=== PATIENT | female | born 1950 | race African-American/Black ===

== ENCOUNTER 2016-06-03 07:16 | Emergency (ER) | payer MEDICARE, OTHER ==
[~2016-06-03] VITALS: Ht 172.7 cm; Wt 100.0 kg
[~2016-06-03 07:16] MED LIST: ASPI81TA2 PO; CLOP75 PO; OLAN5TAB2 PO; TRAM50TA4 PO; TRAZ-147 PO; VERA240T PO
[2016-06-03] MEDS ORDERED: NAPR-58 PO (07:24)
[2016-06-03] MEDS ORDERED: HYDR-309 PO (07:24)
[2016-06-03] MEDS ORDERED: KETOROLAC TROMETHAMINE 30 MG/ML VIAL IM ONE (08:15)
[2016-06-03 09:45] VITALS: BP 165/86
== END 2016-06-03 09:47 | disposition home or self-care (01) ==
LOC: EMS 07:17
DX: S39.012A Strain of muscle, fascia and tendon of lower back, initial encounter (principal); M54.5 Low back pain; M19.90 Unspecified osteoarthritis, unspecified site; F32.9 Major depressive disorder, single episode, unspecified; I10 Essential (primary) hypertension; Z79.01 Long term (current) use of anticoagulants; Z79.82 Long term (current) use of aspirin; Z88.0 Allergy status to penicillin; X58.XXXA Exposure to other specified factors, initial encounter; Y93.89 Activity, other specified; Y92.9 Unspecified place or not applicable; Y99.9 Unspecified external cause status
CPT/HCPCS: 72100; 96372; 99284; J1885

== ENCOUNTER → 2018-05-10 | Emergency (ER) | payer MEDICARE, OTHER ==
[~2018-05-10] VITALS: Ht 167.6 cm; Wt 100.0 kg
[~2018-05-10] MED LIST changes: +ASPI-1182 PO; -ASPI81TA2 PO; +ASPI81TA39 PO; +CARV6.2534 PO; +DULO20CA17 PO; +FERR325T22 PO; +HYD25 PO; +HYDR-309 PO; +HYDR-4065 PO; +HydrOXYzine PAMOATE 25 MG CAPSULE PO ONE; +LEVO25TA9 PO; +NAPR-58 PO; +SIMV20TA6 PO; -TRAZ-147 PO; +TRAZ-186 PO; +VERA180SR PO
[2018-05-10 14:10] VITALS: BP 158/70
== END | disposition home or self-care (01) ==
LOC: EMS 10:41
DX: F41.9 Anxiety disorder, unspecified (principal); G47.00 Insomnia, unspecified; I10 Essential (primary) hypertension; F32.9 Major depressive disorder, single episode, unspecified; M19.90 Unspecified osteoarthritis, unspecified site; Z86.73 Personal history of transient ischemic attack (TIA), and cerebral infarction without residual deficits; Z88.0 Allergy status to penicillin; Z79.82 Long term (current) use of aspirin

== ENCOUNTER 2020-09-02 20:08 | Inpatient (IN) | payer MEDICARE, OTHER ==
[~2020-09-02] VITALS: Ht 167.6 cm; Wt 92.1 kg
[~2020-09-02 20:08] MED LIST changes: -ASPI-1182 PO; +ASPI-1444 PO; -ASPI81TA39 PO; -CLOP75 PO; +CLOP75TA60 PO; -DULO20CA17 PO; +DULO20CA18 PO; +GABA-1181 PO; -HYDR-309 PO; -HydrOXYzine PAMOATE 25 MG CAPSULE PO ONE; +LURA40TA2 PO; +NAPR-1025 PO; -NAPR-58 PO; +SIMV-43 PO; -SIMV20TA6 PO; -TRAZ-186 PO; -VERA240T PO
[2020-09-02 21:17] LABS: COVID AG,FIA SOURCE NASOPHARYNGEAL
[2020-09-02 21:18] LABS: BASOPHILS % (AUTO) 0.1 % (0.0-2.0); EOSINOPHILS % (AUTO) 0 % (1.0-6.0); HEMATOCRIT 34.3 % (36-46); HEMOGLOBIN 11.8 g/dL (12.0-16.0); LYMPHOCYTES # (AUTO) 0.6 K/uL (1.0-4.8); LYMPHOCYTES % (AUTO) 7.7 % (22.0-44.0); MEAN CORPUSCULAR HEMOGLOBIN 30.9 pg (26.0-34.0); MEAN CORPUSCULAR HGB CONC 34.3 G/dL (31.0-37.0); MEAN CORPUSCULAR VOLUME 90 fL (80-100); MONOCYTES # (AUTO) 0.8 K/uL (0.1-1.0); MONOCYTES % (AUTO) 10.8 % (2.0-9.0); NEUTROPHILS # (AUTO) 5.9 K/uL (1.8-7.7); NEUTROPHILS % (AUTO) 81.4 % (40.0-70.0); PLATELET COUNT (AUTO) 280 K/uL (150-450); RED BLOOD CELL COUNT(AUTO) 3.82 MIL/uL (4.00-5.20); RED CELL DISTRIBUTION WIDTH 15.2 % (11.5-14.5)
[2020-09-02 21:44] LABS: ALANINE AMINOTRANSFERASE 32 U/L (12-78); ALBUMIN 3.4 g/dL (3.4-5.0); ALKALINE PHOSPHATASE 127 U/L (46-116); ANION GAP 8 mmol/L (8-16); ASPARTATE AMINOTRANSFERASE 37 U/L (15-37); CALCIUM, TOTAL 8.9 mg/dL (8.8-10.5); CARBON DIOXIDE 26 mmol/L (22-29); CHLORIDE 82 mmol/L (98-107); CREATININE 1.33 mg/dL (0.60-1.30); FREE T4 (FREE THYROXINE) 1.54 ng/dL (0.76-1.46); GLOMERULAR FILTR. RATE CALC 48 mL/min (>60); GLUCOSE,RANDOM 121 mg/dL (70-110); THYROID STIMULATING HORMONE 2.94 uIU/mL (0.36-3.74); TOTAL PROTEIN, SERUM 7.5 g/dL (6.4-8.2); UREA NITROGEN, BLOOD 15 mg/dL (7-18)
[2020-09-02 21:52] LABS: POTASSIUM 2.3 mmol/L (3.5-5.1); SODIUM SERUM 116 mmol/L (136-145)
[2020-09-02] MEDS ORDERED: RINGERS SOLUTION,LACTATED 1,000 ML IV ONE (22:15)
[2020-09-02] MEDS: POTASSIUM CHL 10 MEQ/WATER 50 ML IV SCH ×2 (22:46→23:54)
[2020-09-03] MEDS ORDERED: RINGERS LACTATED IV ONE
[2020-09-03] MEDS ORDERED: ZOLPIDEM TARTRATE 5 MG TABLET PO PRN (00:15)
[2020-09-03] MEDS ORDERED: MORPHINE SULFATE 2 MG/ML SYRINGE IVP PRN (00:15)
[2020-09-03] MEDS ORDERED: BISACODYL 10 MG RECTAL RECTAL SUPPOSITORY PR PRN (00:15)
[2020-09-03] MEDS ORDERED: HYDROCODONE/ACETAMINOPHEN 5-325 MG TABLET PO PRN (00:15)
[2020-09-03] MEDS ORDERED: MAGNESIUM HYDROXIDE SUSPENSION 30 ML UDCUP PO PRN (00:15)
[2020-09-03] MEDS ORDERED: ONDANSETRON HCL 4 MG/2 ML VIAL IVP PRN (00:15)
[2020-09-03] MEDS ORDERED: 0.9% SODIUM CHLORIDE 10 ML SYRINGE IVP PRN (01:00)
[2020-09-03] MEDS: POTASSIUM CHL 10 MEQ/WATER 50 ML IV SCH ×4 (01:18→21:15)
[2020-09-03 02:30] VITALS: BP 151/59
[2020-09-03 04:00] VITALS: BP 146/58
[2020-09-03 04:17] LABS: APPEARANCE,URINE CLEAR (CLEAR); BILIRUBIN,URINE NEGATIVE (NEGATIVE); GLUCOSE, URINE (UA) NEGATIVE (NEGATIVE); KETONES,URINE NEGATIVE (NEGATIVE); LEUKOCYTE ESTERASE ,URINE MODERATE (NEGATIVE); NITRATE,URINE NEGATIVE (NEGATIVE); OCCULT BLOOD,URINE NEGATIVE (NEGATIVE); PROTEIN,URINE NEGATIVE (NEGATIVE)
[2020-09-03 04:29] LABS: BACTERIA,URINE Few /HPF (None Seen); RBC,URINE 0-2 /HPF (0-2); SQUAMOUS EPITHELIAL CELL,UR Few /LPF (None Seen)
[2020-09-03 08:00] VITALS: BP 110/50
[2020-09-03] MEDS: DOCUSATE SODIUM 100 MG CAPSULE PO SCH ×2 (09:00→20:06)
[2020-09-03] MEDS: PANTOPRAZOLE SODIUM 40 MG DR TABLET PO SCH (09:51)
[2020-09-03] MEDS: HEPARIN SODIUM,PORCINE 5,000 UNITS/ML VIAL SQ SCH ×3 (09:51→23:33)
[2020-09-03 12:00] VITALS: BP 111/52
[2020-09-03 12:12] LABS: CALCIUM, TOTAL 8.8 mg/dL (8.8-10.5); CREATININE 1.15 mg/dL (0.60-1.30); PHOSPHORUS 2.1 mg/dL (2.5-4.9)
[2020-09-03 12:18] LABS: POTASSIUM 2.5 mmol/L (3.5-5.1)
[2020-09-03] MEDS ORDERED: SODIUM PHOS,M-BASIC-D-BASIC 30 MMOL in DEXTROSE 5%-WATER 250 ML IV ONE (13:00)
[2020-09-03] MEDS ORDERED: POTASSIUM CHLORIDE 20 MEQ ER TABLET PO ONE ×2 (13:00→19:45)
[2020-09-03] MEDS: SODIUM CHLORIDE 0.9% 1,000 ML IV SCH (13:23)
[2020-09-03 13:55] VITALS: BP 124/52
[2020-09-03] MEDS: ACETAMINOPHEN 325 MG TABLET PO PRN (13:55)
[2020-09-03 14:28] LABS: CREATININE,URINE RANDOM 31.7 mg/dL (30.0-125.0)
[2020-09-03 16:00] VITALS: BP 136/90
[2020-09-03 19:11] LABS: CALCIUM, TOTAL 8.4 mg/dL (8.8-10.5); CREATININE 1.22 mg/dL (0.60-1.30)
[2020-09-03 19:20] LABS: POTASSIUM 2.4 mmol/L (3.5-5.1)
[2020-09-03] MEDS: CARVEDILOL 6.25 MG TABLET PO SCH (20:06)
[2020-09-04] VITALS: BP 118/55
[2020-09-04 04:00] VITALS: BP 132/50
[2020-09-04] MEDS: LEVOTHYROXINE SODIUM 75 MCG TABLET PO SCH (05:48)
[2020-09-04 05:58] LABS: BASOPHILS % (AUTO) 0.3 % (0.0-2.0); EOSINOPHILS % (AUTO) 0.6 % (1.0-6.0); HEMOGLOBIN 10.5 g/dL (12.0-16.0); LYMPHOCYTES # (AUTO) 1.2 K/uL (1.0-4.8); MEAN CORPUSCULAR HGB CONC 34.1 G/dL (31.0-37.0); MEAN CORPUSCULAR VOLUME 91 fL (80-100); MONOCYTES # (AUTO) 0.8 K/uL (0.1-1.0); MONOCYTES % (AUTO) 13.1 % (2.0-9.0); NEUTROPHILS # (AUTO) 3.9 K/uL (1.8-7.7); PLATELET COUNT (AUTO) 237 K/uL (150-450); RED CELL DISTRIBUTION WIDTH 15.3 % (11.5-14.5)
[2020-09-04 06:15] LABS: CREATININE 1.15 mg/dL (0.60-1.30)
[2020-09-04 06:46] LABS: POTASSIUM 2.9 mmol/L (3.5-5.1)
[2020-09-04 07:00] LABS: CALCIUM, TOTAL 8.4 mg/dL (8.8-10.5)
[2020-09-04] MEDS ORDERED: POTASSIUM CHLORIDE 20 MEQ ER TABLET PO ONE (07:00)
[2020-09-04 08:00] VITALS: BP 132/39
[2020-09-04] MEDS: DOCUSATE SODIUM 100 MG CAPSULE PO SCH ×2 (08:36→20:55)
[2020-09-04] MEDS: SODIUM CHLORIDE 0.9% 1,000 ML IV SCH (08:36)
[2020-09-04] MEDS: FERROUS SULFATE 325 MG EC TABLET PO SCH (08:36)
[2020-09-04] MEDS: HEPARIN SODIUM,PORCINE 5,000 UNITS/ML VIAL SQ SCH ×3 (08:36→23:51)
[2020-09-04] MEDS: CARVEDILOL 6.25 MG TABLET PO SCH ×2 (08:37→20:55)
[2020-09-04] MEDS: ASPIRIN 81 MG DR TABLET PO SCH (08:37)
[2020-09-04] MEDS: PANTOPRAZOLE SODIUM 40 MG DR TABLET PO SCH (08:37)
[2020-09-04] MEDS: CLOPIDOGREL BISULFATE 75 MG TABLET PO SCH (08:38)
[2020-09-04 12:00] VITALS: BP 117/49
[2020-09-04 16:00] VITALS: BP 115/55
[2020-09-05] VITALS (8 sets, daily range): BP systolic 102–124; BP diastolic 41–65
[2020-09-05 05:13] LABS: BASOPHILS % (AUTO) 0.3 % (0.0-2.0); EOSINOPHILS % (AUTO) 1.2 % (1.0-6.0); HEMATOCRIT 28.7 % (36-46); HEMOGLOBIN 9.8 g/dL (12.0-16.0); LYMPHOCYTES # (AUTO) 1.3 K/uL (1.0-4.8); LYMPHOCYTES % (AUTO) 20.8 % (22.0-44.0); MEAN CORPUSCULAR HEMOGLOBIN 31.4 pg (26.0-34.0); MEAN CORPUSCULAR HGB CONC 34.1 G/dL (31.0-37.0); MEAN CORPUSCULAR VOLUME 92 fL (80-100); MONOCYTES # (AUTO) 0.7 K/uL (0.1-1.0); MONOCYTES % (AUTO) 10.4 % (2.0-9.0); NEUTROPHILS # (AUTO) 4.4 K/uL (1.8-7.7); NEUTROPHILS % (AUTO) 67.3 % (40.0-70.0); PLATELET COUNT (AUTO) 206 K/uL (150-450); RED BLOOD CELL COUNT(AUTO) 3.12 MIL/uL (4.00-5.20); RED CELL DISTRIBUTION WIDTH 15.6 % (11.5-14.5)
[2020-09-05 05:21] LABS: ANION GAP 8 mmol/L (8-16); CALCIUM, TOTAL 7.8 mg/dL (8.8-10.5); CARBON DIOXIDE 20 mmol/L (22-29); CHLORIDE 101 mmol/L (98-107); CREATININE 1.05 mg/dL (0.60-1.30); GLOMERULAR FILTR. RATE CALC > 60 mL/min (>60); GLUCOSE,RANDOM 116 mg/dL (70-110); POTASSIUM 3.3 mmol/L (3.5-5.1); SODIUM SERUM 129 mmol/L (136-145); UREA NITROGEN, BLOOD 8 mg/dL (7-18)
[2020-09-05] MEDS: SODIUM CHLORIDE 0.9% 1,000 ML IV SCH ×2 (05:39→23:48)
[2020-09-05] MEDS: LEVOTHYROXINE SODIUM 75 MCG TABLET PO SCH (05:39)
[2020-09-05] MEDS ORDERED: POTASSIUM CHLORIDE 20 MEQ ER TABLET PO ONE (06:30)
[2020-09-05] MEDS: FERROUS SULFATE 325 MG EC TABLET PO SCH (08:15)
[2020-09-05] MEDS: CLOPIDOGREL BISULFATE 75 MG TABLET PO SCH (08:15)
[2020-09-05] MEDS: PANTOPRAZOLE SODIUM 40 MG DR TABLET PO SCH (08:15)
[2020-09-05] MEDS: CARVEDILOL 6.25 MG TABLET PO SCH ×2 (08:15→19:56)
[2020-09-05] MEDS: ASPIRIN 81 MG DR TABLET PO SCH (08:16)
[2020-09-05] MEDS: DOCUSATE SODIUM 100 MG CAPSULE PO SCH ×2 (08:16→19:56)
[2020-09-05] MEDS: HEPARIN SODIUM,PORCINE 5,000 UNITS/ML VIAL SQ SCH ×3 (08:16→23:48)
[2020-09-05] MEDS: ACETAMINOPHEN 325 MG TABLET PO PRN (11:09)
[2020-09-05] MEDS ORDERED: HydrOXYzine HCL 25 MG TABLET PO PRN (15:00)
[2020-09-05] MEDS ORDERED: LURASIDONE HCL 40 MG TABLET PO SCH (17:30)
[2020-09-06 04:27] VITALS: BP 119/59
[2020-09-06] MEDS: LEVOTHYROXINE SODIUM 75 MCG TABLET PO SCH (05:18)
[2020-09-06 06:27] LABS: BASOPHILS % (AUTO) 0.4 % (0.0-2.0); EOSINOPHILS % (AUTO) 1.2 % (1.0-6.0); HEMATOCRIT 31.2 % (36-46); HEMOGLOBIN 10.5 g/dL (12.0-16.0); LYMPHOCYTES # (AUTO) 1.4 K/uL (1.0-4.8); LYMPHOCYTES % (AUTO) 21.7 % (22.0-44.0); MEAN CORPUSCULAR HEMOGLOBIN 30.9 pg (26.0-34.0); MEAN CORPUSCULAR HGB CONC 33.8 G/dL (31.0-37.0); MEAN CORPUSCULAR VOLUME 92 fL (80-100); MONOCYTES # (AUTO) 0.7 K/uL (0.1-1.0); NEUTROPHILS # (AUTO) 4.2 K/uL (1.8-7.7); NEUTROPHILS % (AUTO) 65.7 % (40.0-70.0); PLATELET COUNT (AUTO) 224 K/uL (150-450); RED CELL DISTRIBUTION WIDTH 15.7 % (11.5-14.5)
[2020-09-06 06:33] LABS: ANION GAP 12 mmol/L (8-16); CALCIUM, TOTAL 8.3 mg/dL (8.8-10.5); CARBON DIOXIDE 19 mmol/L (22-29); CHLORIDE 104 mmol/L (98-107); CREATININE 0.96 mg/dL (0.60-1.30); GLOMERULAR FILTR. RATE CALC > 60 mL/min (>60); GLUCOSE,RANDOM 98 mg/dL (70-110); POTASSIUM 4.1 mmol/L (3.5-5.1); SODIUM SERUM 135 mmol/L (136-145); UREA NITROGEN, BLOOD 7 mg/dL (7-18)
[2020-09-06 07:21] VITALS: BP 145/55
[2020-09-06] MEDS: FERROUS SULFATE 325 MG EC TABLET PO SCH (08:32)
[2020-09-06] MEDS: MULTIVITAMINS WITH MINERALS, THERAPEUTIC TABLET PO SCH (08:32)
[2020-09-06] MEDS: DOCUSATE SODIUM 100 MG CAPSULE PO SCH ×2 (08:32→19:59)
[2020-09-06] MEDS: ASPIRIN 81 MG DR TABLET PO SCH (08:32)
[2020-09-06] MEDS: CLOPIDOGREL BISULFATE 75 MG TABLET PO SCH (08:32)
[2020-09-06] MEDS: PANTOPRAZOLE SODIUM 40 MG DR TABLET PO SCH (08:32)
[2020-09-06] MEDS: CARVEDILOL 6.25 MG TABLET PO SCH ×2 (08:33→19:59)
[2020-09-06] MEDS: HEPARIN SODIUM,PORCINE 5,000 UNITS/ML VIAL SQ SCH ×3 (08:33→23:18)
[2020-09-06 11:19] VITALS: BP 123/61
[2020-09-06 15:42] VITALS: BP 140/76
[2020-09-06] MEDS ORDERED: LURASIDONE HCL 80 MG TABLET PO SCH (18:00)
[2020-09-06 19:45] VITALS: BP 162/70
[2020-09-06 23:22] VITALS: BP 148/58
[2020-09-07 04:31] VITALS: BP 153/68
[2020-09-07] MEDS: LEVOTHYROXINE SODIUM 75 MCG TABLET PO SCH (05:06)
[2020-09-07 07:33] VITALS: BP 123/52
[2020-09-07] MEDS: ASPIRIN 81 MG DR TABLET PO SCH (08:07)
[2020-09-07] MEDS: FERROUS SULFATE 325 MG EC TABLET PO SCH (08:08)
[2020-09-07] MEDS: CARVEDILOL 6.25 MG TABLET PO SCH (08:08)
[2020-09-07] MEDS: PANTOPRAZOLE SODIUM 40 MG DR TABLET PO SCH (08:08)
[2020-09-07] MEDS: MULTIVITAMINS WITH MINERALS, THERAPEUTIC TABLET PO SCH (08:08)
[2020-09-07] MEDS: CLOPIDOGREL BISULFATE 75 MG TABLET PO SCH (08:08)
[2020-09-07] MEDS: DOCUSATE SODIUM 100 MG CAPSULE PO SCH (08:09)
[2020-09-07] MEDS: HEPARIN SODIUM,PORCINE 5,000 UNITS/ML VIAL SQ SCH ×2 (08:12→16:00)
[2020-09-07 11:40] VITALS: BP 164/67
[2020-09-07] MEDS ORDERED: MULT-1133 PO (12:49)
[2020-09-07] MEDS ORDERED: ACET-2247 PO (12:49)
[2020-09-07] MEDS ORDERED: HYDR-4723 PO (12:50)
[2020-09-07] MEDS ORDERED: BISA10SU11 PR (12:50)
[2020-09-07 12:51] VITALS: BP 151/73
[2020-09-07] MEDS ORDERED: MOM30 PO (12:51)
[2020-09-07 15:37] VITALS: BP 109/58
== END 2020-09-07 17:15 | DRG 682 ==
LOC: EMS 20:10 → ICU 09-03 02:16 → 5S 09-05 16:00
PROVIDERS: ADMIT Internal Medicine; ATTEND Internal Medicine
DX: N17.9 Acute kidney failure, unspecified (principal); G93.41 Metabolic encephalopathy; E87.1 Hypo-osmolality and hyponatremia; E87.6 Hypokalemia; E86.1 Hypovolemia; E78.5 Hyperlipidemia, unspecified; I10 Essential (primary) hypertension; E03.9 Hypothyroidism, unspecified; D64.9 Anemia, unspecified; M19.90 Unspecified osteoarthritis, unspecified site; F20.9 Schizophrenia, unspecified; Z20.822 Contact with and (suspected) exposure to COVID-19; Z86.73 Personal history of transient ischemic attack (TIA), and cerebral infarction without residual deficits; Z79.899 Other long term (current) drug therapy; F32.9 Major depressive disorder, single episode, unspecified; Z88.0 Allergy status to penicillin; Z79.82 Long term (current) use of aspirin
CPT/HCPCS: 70450; 71045; 76770; 80048; 80053; 81001; 82533; 82570; 83036; 83735; 83930; 83935; 84100; 84132; 84133; 84156; 84300; 84439; 84443; 84484; 84540; 85025; 87081; 87086; 87426; 92610; 93005; 97112; 97162; 97167; 97530; 97535; 99291; G0378; G0480; J1644; J3480; J3490; J7030; J7060; J7120; 36415-L1; 36415-TC; X7700

== ENCOUNTER 2022-09-23 19:39 | Emergency (ER) | payer MEDICARE, OTHER ==
[~2022-09-23] VITALS: Ht 167.6 cm; Wt 87.9 kg
[~2022-09-23 19:39] MED LIST changes: +ACET-2247 PO; +AMLO-258 PO; -ASPI-1444 PO; +ASPI-1450 PO; +ATOR40TA28 PO; +AUD NEB; +BENZ-227 PO; +BISA-151 PO; +BUSP5TAB20 PO; +CALC500T37 PO; +CARV3 PO; -CARV6.2534 PO; +CHOL25TA4 PO; +CLON0.1T2 PO; +DICL100G51 TP; +DOCU-385 PO; -DULO20CA18 PO; +ESCI-8 PO; +ESOM20SU2 PO; -FERR325T22 PO; -GABA-1181 PO; -HYD25 PO; -HYDR-4065 PO; +HYDR-4723 PO; +HYDR25TA PO; +HYPR15DR23 OS; +IPRA3S NEB; +LACT1CAP70 PO; +LIDO1ADH83 TP; -LURA40TA2 PO; +MAGN-169 PO; +MULT-664 PO; +NACL1 PO; -NAPR-1025 PO; +NITR0.4T52 SL; -OLAN5TAB2 PO; +ONDA-104 PO; +ROSU20TA73 PO; -SIMV-43 PO; +THYR15TA PO; -TRAM50TA4 PO; +TRAZ-252 PO; +TRAZ150T80 PO; -VERA180SR PO
[2022-09-23] MEDS ORDERED: HYDR25TA PO (20:27)
[2022-09-23] MEDS ORDERED: CARV3 PO (20:27)
[2022-09-23] MEDS ORDERED: ESOM20SU2 PO (20:27)
[2022-09-23] MEDS ORDERED: CALC500T37 PO (20:27)
[2022-09-23] MEDS ORDERED: PB/HYOSCY/ATR/SCOP/LIDO/MAALOX 55 ML BOTTLE PO ONE (20:30)
[2022-09-23] MEDS ORDERED: IPRNEB IH (20:33)
[2022-09-23 20:37] LABS: BASOPHILS % (AUTO) 0.8 % (0.0-2.0); EOSINOPHILS % (AUTO) 5.8 % (1.0-6.0); HEMATOCRIT 27.3 % (36-46); HEMOGLOBIN 8.7 g/dL (12.0-16.0); LYMPHOCYTES # (AUTO) 1.2 K/uL (1.0-4.8); LYMPHOCYTES % (AUTO) 40.9 % (22.0-44.0); MEAN CORPUSCULAR HEMOGLOBIN 28.8 pg (26.0-34.0); MEAN CORPUSCULAR VOLUME 90 fL (80-100); MONOCYTES # (AUTO) 0.3 K/uL (0.1-1.0); NEUTROPHILS # (AUTO) 1.3 K/uL (1.8-7.7); NEUTROPHILS % (AUTO) 43.5 % (40.0-70.0); PLATELET COUNT (AUTO) 200 K/uL (150-450); RED BLOOD CELL COUNT(AUTO) 3.03 MIL/uL (4.00-5.20); RED CELL DISTRIBUTION WIDTH 16.2 % (11.5-14.5)
[2022-09-23 20:44] LABS: ANION GAP 4 mmol/L (8-16); CALCIUM, TOTAL 8.3 mg/dL (8.8-10.5); CARBON DIOXIDE 32 mmol/L (22-29); CHLORIDE 105 mmol/L (98-107); CREATININE 0.86 mg/dL (0.60-1.30); GLOMERULAR FILTR. RATE CALC > 60 mL/min (>60); GLUCOSE,RANDOM 102 mg/dL (70-110); POTASSIUM 4.2 mmol/L (3.5-5.1); SODIUM SERUM 141 mmol/L (136-145)
[2022-09-23 20:51] LABS: ALANINE AMINOTRANSFERASE 39 U/L (12-78); ALBUMIN 2.7 g/dL (3.4-5.0); ALKALINE PHOSPHATASE 85 U/L (46-116); ASPARTATE AMINOTRANSFERASE 44 U/L (15-37); BILIRUBIN,TOTAL 0.1 mg/dL (0.1-1.0); LIPASE 80 U/L (73-393); TOTAL PROTEIN, SERUM 5.9 g/dL (6.4-8.2)
[2022-09-23 21:08] VITALS: BP 155/53
== END 2022-09-23 22:33 | disposition home or self-care (01) ==
LOC: EMS 19:40
DX: R10.13 Epigastric pain (principal); K29.70 Gastritis, unspecified, without bleeding; D64.9 Anemia, unspecified; R77.8 Other specified abnormalities of plasma proteins; F41.9 Anxiety disorder, unspecified; M19.90 Unspecified osteoarthritis, unspecified site; F32.A Depression, unspecified; I10 Essential (primary) hypertension; Z98.51 Tubal ligation status; Z98.890 Other specified postprocedural states; Z88.0 Allergy status to penicillin
CPT/HCPCS: 80053; 83690; 84484; 85025; 93005; 99284

== ENCOUNTER 2022-09-25 02:52 | Emergency (ER) | payer MEDICARE, OTHER ==
[~2022-09-25] VITALS: Ht 167.6 cm; Wt 85.0 kg
[~2022-09-25 02:52] MED LIST changes: -AMLO-258 PO; -CLON0.1T2 PO; -DICL100G51 TP; -ESCI-8 PO; -IPRA3S NEB; +IPRNEB IH; -NACL1 PO; -ROSU20TA73 PO; -THYR15TA PO; -TRAZ150T80 PO
[2022-09-25 03:27] LABS: BASOPHILS % (AUTO) 0.9 % (0.0-2.0); EOSINOPHILS % (AUTO) 5.2 % (1.0-6.0); HEMATOCRIT 29.4 % (36-46); HEMOGLOBIN 9.6 g/dL (12.0-16.0); LYMPHOCYTES # (AUTO) 1.3 K/uL (1.0-4.8); LYMPHOCYTES % (AUTO) 35.2 % (22.0-44.0); MEAN CORPUSCULAR HEMOGLOBIN 29.2 pg (26.0-34.0); MEAN CORPUSCULAR HGB CONC 32.6 G/dL (31.0-37.0); MEAN CORPUSCULAR VOLUME 90 fL (80-100); MONOCYTES # (AUTO) 0.3 K/uL (0.1-1.0); MONOCYTES % (AUTO) 8.6 % (2.0-9.0); NEUTROPHILS # (AUTO) 1.9 K/uL (1.8-7.7); NEUTROPHILS % (AUTO) 50.1 % (40.0-70.0); PLATELET COUNT (AUTO) 207 K/uL (150-450); RED BLOOD CELL COUNT(AUTO) 3.28 MIL/uL (4.00-5.20); RED CELL DISTRIBUTION WIDTH 16.3 % (11.5-14.5)
[2022-09-25 03:36] LABS: ANION GAP 6 mmol/L (8-16); CALCIUM, TOTAL 8.7 mg/dL (8.8-10.5); CARBON DIOXIDE 31 mmol/L (22-29); CHLORIDE 103 mmol/L (98-107); CREATININE 0.84 mg/dL (0.60-1.30); GLOMERULAR FILTR. RATE CALC > 60 mL/min (>60); GLUCOSE,RANDOM 96 mg/dL (70-110); POTASSIUM 4.2 mmol/L (3.5-5.1); SODIUM SERUM 140 mmol/L (136-145)
[2022-09-25 03:40] LABS: PROTHROMBIN TIME 10.6 SEC (9.4-11.6)
[2022-09-25 03:43] LABS: ALANINE AMINOTRANSFERASE 36 U/L (12-78); ALKALINE PHOSPHATASE 84 U/L (46-116); ASPARTATE AMINOTRANSFERASE 29 U/L (15-37); BILIRUBIN,TOTAL 0.2 mg/dL (0.1-1.0); CREATINE KINASE, TOTAL ONLY 43 U/L (26-192); LIPASE 68 U/L (73-393); TOTAL PROTEIN, SERUM 6.4 g/dL (6.4-8.2)
[2022-09-25 03:53] LABS: B-TYPE NATRIURETIC PEPTIDE 336 pg/mL (0-100)
[2022-09-25 04:38] LABS: APPEARANCE,URINE CLEAR (CLEAR); BILIRUBIN,URINE NEGATIVE (NEGATIVE); GLUCOSE, URINE (UA) NEGATIVE (NEGATIVE); KETONES,URINE NEGATIVE (NEGATIVE); LEUKOCYTE ESTERASE ,URINE NEGATIVE (NEGATIVE); NITRATE,URINE NEGATIVE (NEGATIVE); OCCULT BLOOD,URINE NEGATIVE (NEGATIVE); PROTEIN,URINE NEGATIVE (NEGATIVE); SPECIFIC GRAVITIY, URINE 1.005 (1.003-1.030); UROBILINOGEN,URINE <=1.0 mg/dL (<=1.0)
[2022-09-25] MEDS ORDERED: FAMOTIDINE 20 MG TABLET PO ONE (04:45)
[2022-09-25 06:41] VITALS: BP 163/58
== END 2022-09-25 10:18 | disposition home or self-care (01) ==
LOC: EMS 02:52
DX: R10.10 Upper abdominal pain, unspecified (principal); K21.9 Gastro-esophageal reflux disease without esophagitis; F41.9 Anxiety disorder, unspecified; M19.90 Unspecified osteoarthritis, unspecified site; F32.A Depression, unspecified; I10 Essential (primary) hypertension; Z98.51 Tubal ligation status; Z98.890 Other specified postprocedural states; Z88.0 Allergy status to penicillin
CPT/HCPCS: 71045; 74176; 80053; 81003; 82550; 83690; 83880; 84484; 85025; 85610; 85730; 93005; 99285; 36415-L1; 36415-TC

== ENCOUNTER 2022-10-06 20:21 | Inpatient (IN) | payer MEDICARE, OTHER ==
[~2022-10-06] VITALS: Ht 167.6 cm; Wt 86.0 kg
[~2022-10-06 20:21] MED LIST changes: +IPRA0.2S49 IH; -IPRNEB IH
[2022-10-06 21:05] LABS: BASOPHILS % (AUTO) 0.9 % (0.0-2.0); EOSINOPHILS % (AUTO) 4.6 % (1.0-6.0); HEMATOCRIT 27.7 % (36-46); HEMOGLOBIN 8.9 g/dL (12.0-16.0); LYMPHOCYTES # (AUTO) 1.2 K/uL (1.0-4.8); MEAN CORPUSCULAR HEMOGLOBIN 28.6 pg (26.0-34.0); MEAN CORPUSCULAR VOLUME 89 fL (80-100); MONOCYTES # (AUTO) 0.3 K/uL (0.1-1.0); MONOCYTES % (AUTO) 12.2 % (2.0-9.0); NEUTROPHILS % (AUTO) 37.3 % (40.0-70.0); PLATELET COUNT (AUTO) 200 K/uL (150-450); RED CELL DISTRIBUTION WIDTH 15.7 % (11.5-14.5)
[2022-10-06 21:15] LABS: ANION GAP 8 mmol/L (8-16); CALCIUM, TOTAL 8.4 mg/dL (8.8-10.5); CARBON DIOXIDE 25 mmol/L (22-29); CHLORIDE 105 mmol/L (98-107); CREATININE 1.04 mg/dL (0.60-1.30); GLOMERULAR FILTR. RATE CALC > 60 mL/min (>60); GLUCOSE,RANDOM 98 mg/dL (70-110); POTASSIUM 3.7 mmol/L (3.5-5.1); SODIUM SERUM 138 mmol/L (136-145)
[2022-10-06 21:18] LABS: PROTHROMBIN TIME 10.6 SEC (9.4-11.6)
[2022-10-06 21:22] LABS: B-TYPE NATRIURETIC PEPTIDE 52 pg/mL (0-100)
[2022-10-06 21:29] LABS: ALANINE AMINOTRANSFERASE 14 U/L (12-78); ALKALINE PHOSPHATASE 77 U/L (46-116); ASPARTATE AMINOTRANSFERASE 12 U/L (15-37); BILIRUBIN,TOTAL 0.2 mg/dL (0.1-1.0); TOTAL PROTEIN, SERUM 6.3 g/dL (6.4-8.2)
[2022-10-06 21:32] LABS: THYROID STIMULATING HORMONE 5.03 uIU/mL (0.36-3.74)
[2022-10-06] MEDS ORDERED: MORPHINE SULFATE 4 MG/ML SYRINGE IVP ONE (22:00)
[2022-10-06] MEDS ORDERED: ONDANSETRON HCL 4 MG/2 ML VIAL IVP ONE (22:00)
[2022-10-06] MEDS ORDERED: PANTOPRAZOLE SODIUM 40 MG/VIAL IVP ONE (22:00)
[2022-10-06] MEDS ORDERED: ONDANSETRON HCL 4 MG/2 ML VIAL IVP PRN (22:30)
[2022-10-06] MEDS ORDERED: 0.9% SODIUM CHLORIDE 10 ML SYRINGE IVP PRN (22:30)
[2022-10-07] VITALS (10 sets, daily range): BP systolic 137–180; BP diastolic 51–80; PULSE 59–87; RESP 17–20; TEMP 97.8–98.7; O2SAT 96–98
[2022-10-07] MEDS: ACETAMINOPHEN 325 MG TABLET PO PRN ×3 (00:11→09:05)
[2022-10-07] MEDS ORDERED: CARVEDILOL 6.25 MG TABLET PO ONE (00:45)
[2022-10-07] MEDS: HydrALAZINE HCL 20 MG/ML VIAL IVP PRN ×2 (02:14→09:03)
[2022-10-07] MEDS ORDERED: MAGNESIUM HYDROXIDE SUSPENSION 30 ML UDCUP PO PRN ×2 (11:45→12:00)
[2022-10-07] MEDS ORDERED: BISACODYL 5 MG EC TABLET PO PRN (11:45)
[2022-10-07] MEDS ORDERED: IPRATROPIUM BROMIDE 0.5 MG/2.5 ML NEB SOLUTION NEB PRN (12:00)
[2022-10-07] MEDS ORDERED: MORPHINE SULFATE 2 MG/ML SYRINGE IVP PRN (12:00)
[2022-10-07] MEDS ORDERED: ONDANSETRON HCL 4 MG/2 ML VIAL IVP PRN (12:00)
[2022-10-07] MEDS: ASPIRIN 81 MG CHEWABLE TABLET PO SCH (12:11)
[2022-10-07] MEDS: NITROGLYCERIN 2% (1 GM=INCH) OINTMENT PACKET TP SCH ×3 (12:11→23:37)
[2022-10-07] MEDS: CLOPIDOGREL BISULFATE 75 MG TABLET PO SCH (12:11)
[2022-10-07] MEDS: BusPIRone HCL 5 MG TABLET PO SCH ×2 (12:11→20:17)
[2022-10-07] MEDS: ATORVASTATIN CALCIUM 40 MG TABLET PO SCH (12:11)
[2022-10-07] MEDS: CARVEDILOL 3.125 MG TABLET PO SCH ×2 (12:11→23:32)
[2022-10-07] MEDS: CALCIUM CARBONATE 500 MG CHEWABLE TABLET PO PRN ×2 (15:18→23:36)
[2022-10-07] MEDS: HYDROCODONE/ACETAMINOPHEN 5-325 MG TABLET PO PRN ×2 (15:18→20:19)
[2022-10-07] MEDS: TraZODone HCL 50 MG TABLET PO SCH (20:16)
[2022-10-07] MEDS: HYDROCHLOROTHIAZIDE 25 MG TABLET PO SCH (20:17)
[2022-10-07] MEDS: DOCUSATE SODIUM 100 MG CAPSULE PO SCH (20:25)
[2022-10-07] MEDS: ZOLPIDEM TARTRATE 10 MG TABLET PO PRN (23:52)
[2022-10-08] VITALS (10 sets, daily range): BP systolic 129–214; BP diastolic 45–93; PULSE 56–75; RESP 18–20; TEMP 98–98.5
[2022-10-08] MEDS: CALCIUM CARBONATE 500 MG CHEWABLE TABLET PO PRN ×3 (05:38→23:24)
[2022-10-08] MEDS: HYDROCODONE/ACETAMINOPHEN 5-325 MG TABLET PO PRN ×3 (05:38→20:16)
[2022-10-08] MEDS: NITROGLYCERIN 2% (1 GM=INCH) OINTMENT PACKET TP SCH ×4 (05:38→23:24)
[2022-10-08] MEDS: LEVOTHYROXINE SODIUM 25 MCG TABLET PO SCH (05:40)
[2022-10-08 07:00] LABS: CHOL/HDL RATIO 2.6 (3.9-5.7)
[2022-10-08] MEDS ORDERED: DOCUSATE SODIUM 100 MG CAPSULE PO SCH (09:00)
[2022-10-08] MEDS: CHOLECALCIFEROL (VIT D3) 1,000 UNITS [25 MCG] TABLET PO SCH (09:27)
[2022-10-08] MEDS: CLOPIDOGREL BISULFATE 75 MG TABLET PO SCH (09:28)
[2022-10-08] MEDS: ATORVASTATIN CALCIUM 40 MG TABLET PO SCH (09:28)
[2022-10-08] MEDS: HYDROCHLOROTHIAZIDE 25 MG TABLET PO SCH ×2 (09:28→20:17)
[2022-10-08] MEDS: DOCUSATE SODIUM 100 MG CAPSULE PO SCH ×2 (09:29→20:16)
[2022-10-08] MEDS: BusPIRone HCL 5 MG TABLET PO SCH ×2 (09:29→20:17)
[2022-10-08] MEDS: PANTOPRAZOLE SODIUM 40 MG/VIAL IVP SCH (09:29)
[2022-10-08] MEDS: ASPIRIN 81 MG CHEWABLE TABLET PO SCH (09:29)
[2022-10-08 12:53] LABS: BASOPHILS % (AUTO) 0.5 % (0.0-2.0); EOSINOPHILS % (AUTO) 5.7 % (1.0-6.0); HEMATOCRIT 27.2 % (36-46); HEMOGLOBIN 8.8 g/dL (12.0-16.0); LYMPHOCYTES # (AUTO) 1.2 K/uL (1.0-4.8); LYMPHOCYTES % (AUTO) 33.1 % (22.0-44.0); MEAN CORPUSCULAR HEMOGLOBIN 29.3 pg (26.0-34.0); MEAN CORPUSCULAR HGB CONC 32.5 G/dL (31.0-37.0); MEAN CORPUSCULAR VOLUME 90 fL (80-100); MONOCYTES # (AUTO) 0.4 K/uL (0.1-1.0); MONOCYTES % (AUTO) 12.4 % (2.0-9.0); NEUTROPHILS # (AUTO) 1.7 K/uL (1.8-7.7); NEUTROPHILS % (AUTO) 48.3 % (40.0-70.0); PLATELET COUNT (AUTO) 186 K/uL (150-450); RED BLOOD CELL COUNT(AUTO) 3.01 MIL/uL (4.00-5.20); RED CELL DISTRIBUTION WIDTH 15.9 % (11.5-14.5)
[2022-10-08 13:00] LABS: ANION GAP 12 mmol/L (8-16); CALCIUM, TOTAL 8.6 mg/dL (8.8-10.5); CARBON DIOXIDE 24 mmol/L (22-29); CHLORIDE 105 mmol/L (98-107); CREATININE 0.92 mg/dL (0.60-1.30); GLOMERULAR FILTR. RATE CALC > 60 mL/min (>60); GLUCOSE,RANDOM 95 mg/dL (70-110); POTASSIUM 4.1 mmol/L (3.5-5.1); SODIUM SERUM 141 mmol/L (136-145)
[2022-10-08] MEDS: CARVEDILOL 3.125 MG TABLET PO SCH ×2 (13:03→23:24)
[2022-10-08 13:06] LABS: ALANINE AMINOTRANSFERASE 12 U/L (12-78); ALKALINE PHOSPHATASE 69 U/L (46-116); ASPARTATE AMINOTRANSFERASE 14 U/L (15-37); BILIRUBIN,TOTAL 0.3 mg/dL (0.1-1.0); TOTAL PROTEIN, SERUM 6.4 g/dL (6.4-8.2)
[2022-10-08] MEDS: ACETAMINOPHEN 325 MG TABLET PO PRN ×2 (15:52→23:24)
[2022-10-08] MEDS: NITROGLYCERIN 0.4 MG SUBLINGUAL TABLET #25 SL PRN ×2 (18:25→22:19)
[2022-10-08] MEDS: TraZODone HCL 50 MG TABLET PO SCH (20:17)
[2022-10-08] MEDS: HydrALAZINE HCL 20 MG/ML VIAL IVP PRN (22:19)
[2022-10-08] MEDS: ONDANSETRON HCL 4 MG TABLET PO PRN (22:48)
[2022-10-08] MEDS: ZOLPIDEM TARTRATE 10 MG TABLET PO PRN (23:24)
[2022-10-09 01:05] VITALS: BP 141/51; PULSE 83; RESP 20; TEMP 98.5
[2022-10-09] MEDS: NITROGLYCERIN 0.4 MG SUBLINGUAL TABLET #25 SL PRN (02:45)
[2022-10-09] MEDS: LEVOTHYROXINE SODIUM 25 MCG TABLET PO SCH (05:09)
[2022-10-09] MEDS: ACETAMINOPHEN 325 MG TABLET PO PRN ×2 (05:09→09:16)
[2022-10-09] MEDS: NITROGLYCERIN 2% (1 GM=INCH) OINTMENT PACKET TP SCH ×2 (05:10→11:50)
[2022-10-09] MEDS: PANTOPRAZOLE SODIUM 40 MG/VIAL IVP SCH (09:12)
[2022-10-09] MEDS: HYDROCHLOROTHIAZIDE 25 MG TABLET PO SCH (09:12)
[2022-10-09] MEDS: ONDANSETRON HCL 4 MG TABLET PO PRN (09:13)
[2022-10-09] MEDS: BusPIRone HCL 5 MG TABLET PO SCH (09:13)
[2022-10-09] MEDS: DOCUSATE SODIUM 100 MG CAPSULE PO SCH (09:13)
[2022-10-09] MEDS: CLOPIDOGREL BISULFATE 75 MG TABLET PO SCH (09:13)
[2022-10-09] MEDS: CHOLECALCIFEROL (VIT D3) 1,000 UNITS [25 MCG] TABLET PO SCH (09:13)
[2022-10-09] MEDS: ATORVASTATIN CALCIUM 40 MG TABLET PO SCH (09:14)
[2022-10-09] MEDS: ZOLPIDEM TARTRATE 10 MG TABLET PO PRN (09:14)
[2022-10-09] MEDS: ASPIRIN 81 MG CHEWABLE TABLET PO SCH (09:17)
[2022-10-09] MEDS: HydrALAZINE HCL 20 MG/ML VIAL IVP PRN (09:18)
[2022-10-09 11:39] VITALS: BP 152/63; PULSE 75; RESP 19; TEMP 98.1
[2022-10-09] MEDS: CARVEDILOL 3.125 MG TABLET PO SCH (11:50)
[2022-10-09] MEDS ORDERED: HydrALAZINE HCL 20 MG/ML VIAL IVP ONE (13:15)
[2022-10-09] MEDS ORDERED: HydrALAZINE HCL 50 MG TABLET PO SCH (21:00)
== END 2022-10-09 15:30 | disposition home or self-care (01) | DRG 392 ==
LOC: EMS 20:34 → 5S 22:56
PROVIDERS: ADMIT Hospitalist; ATTEND Hospitalist
DX: K21.9 Gastro-esophageal reflux disease without esophagitis (principal); R10.13 Epigastric pain; R07.9 Chest pain, unspecified; I25.10 Atherosclerotic heart disease of native coronary artery without angina pectoris; F41.9 Anxiety disorder, unspecified; I10 Essential (primary) hypertension; M17.10 Unilateral primary osteoarthritis, unspecified knee; R79.89 Other specified abnormal findings of blood chemistry; F32.A Depression, unspecified; Z79.82 Long term (current) use of aspirin; Z88.0 Allergy status to penicillin; Z79.02 Long term (current) use of antithrombotics/antiplatelets; Z79.899 Other long term (current) drug therapy; Z86.73 Personal history of transient ischemic attack (TIA), and cerebral infarction without residual deficits; Z98.51 Tubal ligation status
CPT/HCPCS: 71045; 80053; 80061; 83735; 83880; 84443; 84484; 85025; 85610; 85730; 93005; 99291; C9113; G0378; J0360; J2270; J2405; Q0162; 36415-L1; 36415-TC

== ENCOUNTER 2022-11-04 04:48 | Inpatient (IN) | payer MEDICARE, OTHER ==
[~2022-11-04] VITALS: Ht 167.6 cm; Wt 86.0 kg
[~2022-11-04 04:48] MED LIST changes: +ALBU2.5V39 NEB; -AUD NEB
[2022-11-04 05:29] LABS: BASOPHILS % (AUTO) 0.9 % (0.0-2.0); EOSINOPHILS % (AUTO) 5.4 % (1.0-6.0); HEMATOCRIT 29.8 % (36-46); HEMOGLOBIN 9.7 g/dL (12.0-16.0); LYMPHOCYTES # (AUTO) 1.1 K/uL (1.0-4.8); LYMPHOCYTES % (AUTO) 52.9 % (22.0-44.0); MEAN CORPUSCULAR HEMOGLOBIN 28.9 pg (26.0-34.0); MEAN CORPUSCULAR HGB CONC 32.6 G/dL (31.0-37.0); MEAN CORPUSCULAR VOLUME 89 fL (80-100); MONOCYTES # (AUTO) 0.2 K/uL (0.1-1.0); MONOCYTES % (AUTO) 9.9 % (2.0-9.0); NEUTROPHILS # (AUTO) 0.6 K/uL (1.8-7.7); NEUTROPHILS % (AUTO) 30.9 % (40.0-70.0); PLATELET COUNT (AUTO) 169 K/uL (150-450); RED BLOOD CELL COUNT(AUTO) 3.36 MIL/uL (4.00-5.20)
[2022-11-04 05:53] LABS: APPEARANCE,URINE CLEAR (CLEAR); BILIRUBIN,URINE NEGATIVE (NEGATIVE); GLUCOSE, URINE (UA) NEGATIVE (NEGATIVE); KETONES,URINE NEGATIVE (NEGATIVE); LEUKOCYTE ESTERASE ,URINE NEGATIVE (NEGATIVE); NITRATE,URINE NEGATIVE (NEGATIVE); OCCULT BLOOD,URINE NEGATIVE (NEGATIVE); PH,URINE 7.5 (5.0-8.0); PROTEIN,URINE NEGATIVE (NEGATIVE); SPECIFIC GRAVITIY, URINE 1.009 (1.003-1.030); UROBILINOGEN,URINE <=1.0 mg/dL (<=1.0)
[2022-11-04 05:54] LABS: CALCIUM, TOTAL 8.9 mg/dL (8.8-10.5); CREATININE 1.08 mg/dL (0.60-1.30); POTASSIUM 3.3 mmol/L (3.5-5.1)
[2022-11-04 05:59] LABS: ALBUMIN 3.3 g/dL (3.4-5.0); BILIRUBIN,TOTAL 0.2 mg/dL (0.1-1.0); TOTAL PROTEIN, SERUM 6.6 g/dL (6.4-8.2)
[2022-11-04] MEDS ORDERED: MORPHINE SULFATE 2 MG/ML SYRINGE IVP ONE (06:15)
[2022-11-04] MEDS ORDERED: SODIUM CHLORIDE 0.9% 1,000 ML IV ONE (06:15)
[2022-11-04] MEDS ORDERED: NITROGLYCERIN 2% (1 GM=INCH) OINTMENT PACKET TP ONE (06:15)
[2022-11-04] MEDS ORDERED: ASPIRIN 81 MG CHEWABLE TABLET PO ONE (06:15)
[2022-11-04] MEDS ORDERED: ONDANSETRON HCL 4 MG/2 ML VIAL IVP ONE (06:15)
[2022-11-04] MEDS ORDERED: POTASSIUM CHLORIDE 20 MEQ ER TABLET PO ONE (06:45)
[2022-11-04] MEDS ORDERED: 0.9% SODIUM CHLORIDE 10 ML SYRINGE IVP PRN (10:15)
[2022-11-04] MEDS ORDERED: OxyCODONE HCL/ACETAMINOPHEN 5-325 MG TABLET PO PRN (10:15)
[2022-11-04] MEDS ORDERED: CARVEDILOL 3.125 MG TABLET PO SCH (10:15)
[2022-11-04] MEDS ORDERED: MAGNESIUM HYDROXIDE SUSPENSION 30 ML UDCUP PO PRN (10:15)
[2022-11-04] MEDS ORDERED: POTASSIUM CHLORIDE 20 MEQ ER TABLET PO PRN (10:45)
[2022-11-04] MEDS ORDERED: POTASSIUM CHL 10 MEQ/WATER 50 ML IV PRN (10:45)
[2022-11-04] MEDS: PANTOPRAZOLE SODIUM 40 MG/VIAL IVP SCH (10:46)
[2022-11-04] MEDS: HEPARIN SODIUM,PORCINE 5,000 UNITS/ML VIAL SQ SCH ×2 (10:48→23:09)
[2022-11-04] MEDS: OxyCODONE HCL/ACETAMINOPHEN 5-325 MG TABLET PO PRN ×3 (10:49→23:11)
[2022-11-04] MEDS: DOCUSATE SODIUM 100 MG CAPSULE PO SCH ×2 (10:49→23:10)
[2022-11-04] MEDS: ATORVASTATIN CALCIUM 40 MG TABLET PO SCH (10:49)
[2022-11-04] MEDS: CLOPIDOGREL BISULFATE 75 MG TABLET PO SCH (11:08)
[2022-11-04] MEDS: LEVOTHYROXINE SODIUM 25 MCG TABLET PO SCH (11:08)
[2022-11-04] MEDS ORDERED: PANT40TA54 PO (13:39)
[2022-11-04] MEDS ORDERED: TRAZ150T80 PO (13:39)
[2022-11-04] MEDS ORDERED: CARV6.2534 PO (13:39)
[2022-11-04] MEDS ORDERED: CLON0.1T2 PO (13:39)
[2022-11-04] MEDS ORDERED: DULO20CA71 PO (13:39)
[2022-11-04] MEDS ORDERED: LORA10TA7 PO (13:39)
[2022-11-04] MEDS ORDERED: BUSP10TA3 PO (13:39)
[2022-11-04 21:00] VITALS: BP 154/54; PULSE 67; RESP 20; TEMP 97.9; O2SAT 100
[2022-11-04] MEDS: AmLODIPine BESYLATE 5 MG TABLET PO SCH (23:09)
[2022-11-05 00:42] VITALS: BP 149/58; PULSE 52; RESP 18; TEMP 98.2
[2022-11-05] MEDS: ONDANSETRON HCL 4 MG/2 ML VIAL IVP PRN (01:54)
[2022-11-05] MEDS: OxyCODONE HCL/ACETAMINOPHEN 5-325 MG TABLET PO PRN (04:32)
[2022-11-05 04:38] VITALS: BP 164/60; PULSE 51; RESP 18; TEMP 97.9
[2022-11-05] MEDS: NITROGLYCERIN 0.4 MG SUBLINGUAL TABLET #25 SL PRN ×2 (07:04→15:03)
[2022-11-05] MEDS: LEVOTHYROXINE SODIUM 25 MCG TABLET PO SCH (07:06)
[2022-11-05] MEDS ORDERED: HydrALAZINE HCL 25 MG TABLET PO SCH (08:00)
[2022-11-05 08:50] VITALS: BP 143/61; PULSE 57; RESP 17; TEMP 97.5
[2022-11-05] MEDS: ATORVASTATIN CALCIUM 40 MG TABLET PO SCH (08:57)
[2022-11-05] MEDS: ASPIRIN 81 MG CHEWABLE TABLET PO SCH (08:57)
[2022-11-05] MEDS: CLOPIDOGREL BISULFATE 75 MG TABLET PO SCH (08:57)
[2022-11-05] MEDS: AmLODIPine BESYLATE 5 MG TABLET PO SCH ×2 (08:57→20:23)
[2022-11-05] MEDS: PANTOPRAZOLE SODIUM 40 MG/VIAL IVP SCH (08:57)
[2022-11-05] MEDS: HEPARIN SODIUM,PORCINE 5,000 UNITS/ML VIAL SQ SCH ×2 (08:57→20:22)
[2022-11-05] MEDS: DOCUSATE SODIUM 100 MG CAPSULE PO SCH ×2 (08:57→20:23)
[2022-11-05] MEDS: ACETAMINOPHEN 325 MG TABLET PO PRN ×2 (09:12→19:42)
[2022-11-05 10:28] LABS: BASOPHILS % (AUTO) 0.6 % (0.0-2.0); EOSINOPHILS % (AUTO) 6.4 % (1.0-6.0); HEMATOCRIT 31.7 % (36-46); HEMOGLOBIN 10.1 g/dL (12.0-16.0); LYMPHOCYTES # (AUTO) 1.3 K/uL (1.0-4.8); LYMPHOCYTES % (AUTO) 39.9 % (22.0-44.0); MEAN CORPUSCULAR HEMOGLOBIN 28.2 pg (26.0-34.0); MEAN CORPUSCULAR HGB CONC 31.8 G/dL (31.0-37.0); MEAN CORPUSCULAR VOLUME 89 fL (80-100); MONOCYTES # (AUTO) 0.3 K/uL (0.1-1.0); MONOCYTES % (AUTO) 9.9 % (2.0-9.0); NEUTROPHILS # (AUTO) 1.5 K/uL (1.8-7.7); NEUTROPHILS % (AUTO) 43.2 % (40.0-70.0); PLATELET COUNT (AUTO) 175 K/uL (150-450); RED BLOOD CELL COUNT(AUTO) 3.57 MIL/uL (4.00-5.20); RED CELL DISTRIBUTION WIDTH 15.3 % (11.5-14.5)
[2022-11-05 10:47] LABS: ANION GAP 2 mmol/L (8-16); CALCIUM, TOTAL 8.7 mg/dL (8.8-10.5); CARBON DIOXIDE 28 mmol/L (22-29); CHLORIDE 106 mmol/L (98-107); CREATININE 0.94 mg/dL (0.60-1.30); GLOMERULAR FILTR. RATE CALC > 60 mL/min (>60); GLUCOSE,RANDOM 75 mg/dL (70-110); SODIUM SERUM 136 mmol/L (136-145)
[2022-11-05 10:57] LABS: PLATELET MORPHOLOGY COMMENT LARGE PLTS PRESENT
[2022-11-05] MEDS: HYDROCODONE/ACETAMINOPHEN 5-325 MG TABLET PO PRN ×2 (11:56→17:23)
[2022-11-05 12:15] VITALS: BP 192/67; PULSE 53; RESP 17; TEMP 98.3
[2022-11-05] MEDS ORDERED: MAGNESIUM HYDROXIDE SUSPENSION 30 ML UDCUP PO PRN (14:00)
[2022-11-05] MEDS ORDERED: DiphenhydrAMINE HCL 50 MG/ML VIAL IM ONE (14:00)
[2022-11-05] MEDS ORDERED: MORPHINE SULFATE 2 MG/ML SYRINGE IVP PRN (14:00)
[2022-11-05] MEDS: BISACODYL 5 MG EC TABLET PO PRN (14:53)
[2022-11-05] MEDS: CALCIUM CARBONATE 500 MG CHEWABLE TABLET CHEW PRN (14:54)
[2022-11-05] MEDS: HydrALAZINE HCL 50 MG TABLET PO SCH ×2 (15:12→23:25)
[2022-11-05 15:55] VITALS: BP 147/72; PULSE 62; RESP 18; TEMP 98.3
[2022-11-05] MEDS: LOSARTAN POTASSIUM 25 MG TABLET PO SCH (20:23)
[2022-11-05 21:10] VITALS: BP 152/70; PULSE 59; RESP 18; TEMP 98.5
[2022-11-05] MEDS ORDERED: TraZODone HCL 150 MG TABLET PO PRN (21:30)
[2022-11-06 00:46] VITALS: BP 154/64; PULSE 93; RESP 20; TEMP 98.7
[2022-11-06] MEDS: CALCIUM CARBONATE 500 MG CHEWABLE TABLET CHEW PRN ×2 (02:00→17:49)
[2022-11-06 04:01] VITALS: BP 155/60; PULSE 64; RESP 20; TEMP 98.7
[2022-11-06] MEDS: ACETAMINOPHEN 325 MG TABLET PO PRN ×2 (04:51→17:49)
[2022-11-06] MEDS: LEVOTHYROXINE SODIUM 25 MCG TABLET PO SCH (06:34)
[2022-11-06 08:00] VITALS: BP 153/65; PULSE 95; RESP 19; TEMP 98.3
[2022-11-06] MEDS: ASPIRIN 81 MG CHEWABLE TABLET PO SCH (08:55)
[2022-11-06] MEDS: CLOPIDOGREL BISULFATE 75 MG TABLET PO SCH (08:55)
[2022-11-06] MEDS: HydrALAZINE HCL 50 MG TABLET PO SCH ×2 (08:55→15:58)
[2022-11-06] MEDS: PANTOPRAZOLE SODIUM 40 MG/VIAL IVP SCH (08:56)
[2022-11-06] MEDS: DOCUSATE SODIUM 100 MG CAPSULE PO SCH (08:56)
[2022-11-06] MEDS: HEPARIN SODIUM,PORCINE 5,000 UNITS/ML VIAL SQ SCH (08:57)
[2022-11-06] MEDS: ATORVASTATIN CALCIUM 40 MG TABLET PO SCH (08:57)
[2022-11-06] MEDS: AmLODIPine BESYLATE 5 MG TABLET PO SCH (08:57)
[2022-11-06] MEDS: LOSARTAN POTASSIUM 25 MG TABLET PO SCH (08:57)
[2022-11-06] MEDS: BISACODYL 5 MG EC TABLET PO PRN (08:58)
[2022-11-06] MEDS: ONDANSETRON HCL 4 MG/2 ML VIAL IVP PRN (09:03)
[2022-11-06 11:20] VITALS: BP 147/54; PULSE 83; RESP 18; TEMP 99.2
[2022-11-06] MEDS ORDERED: BISA10SU11 PR (12:27)
[2022-11-06] MEDS ORDERED: MAGN-169 PO (12:27)
[2022-11-06] MEDS ORDERED: ASPI81 PO (12:27)
[2022-11-06] MEDS ORDERED: ATOR40TA71 PO (12:27)
[2022-11-06] MEDS ORDERED: LOSA25TA2 PO (12:27)
[2022-11-06] MEDS ORDERED: POLY17PO47 PO (12:27)
[2022-11-06] MEDS ORDERED: HYDR-4174 PO (12:27)
[2022-11-06] MEDS ORDERED: DOCU-385 PO (12:27)
[2022-11-06] MEDS ORDERED: AMLO-257 PO (12:27)
[2022-11-06] MEDS ORDERED: MINERAL OIL 133 ML ENEMA PR ONE (12:30)
[2022-11-06 13:49] LABS: EOSINOPHILS % (AUTO) 1.4 % (1.0-6.0); HEMATOCRIT 32.4 % (36-46); HEMOGLOBIN 10.6 g/dL (12.0-16.0); LYMPHOCYTES # (AUTO) 0.7 K/uL (1.0-4.8); LYMPHOCYTES % (AUTO) 20.8 % (22.0-44.0); MEAN CORPUSCULAR HEMOGLOBIN 28.6 pg (26.0-34.0); MEAN CORPUSCULAR HGB CONC 32.6 G/dL (31.0-37.0); MEAN CORPUSCULAR VOLUME 88 fL (80-100); MONOCYTES # (AUTO) 0.3 K/uL (0.1-1.0); MONOCYTES % (AUTO) 8.6 % (2.0-9.0); NEUTROPHILS # (AUTO) 2.2 K/uL (1.8-7.7); NEUTROPHILS % (AUTO) 68.2 % (40.0-70.0); PLATELET COUNT (AUTO) 204 K/uL (150-450); RED CELL DISTRIBUTION WIDTH 15.3 % (11.5-14.5)
[2022-11-06 15:45] VITALS: BP 162/75; PULSE 88; RESP 18; TEMP 98.6
[2022-11-06 19:20] VITALS: BP 158/75
== END 2022-11-06 19:25 | disposition home or self-care (01) | DRG 392 ==
LOC: EMS 04:49 → AHU 09:15 → 5S 22:44
PROVIDERS: ADMIT Internal Medicine; ATTEND Internal Medicine
DX: K59.00 Constipation, unspecified (principal); E46 Unspecified protein-calorie malnutrition; R10.13 Epigastric pain; E87.6 Hypokalemia; R11.2 Nausea with vomiting, unspecified; I25.10 Atherosclerotic heart disease of native coronary artery without angina pectoris; R00.1 Bradycardia, unspecified; I10 Essential (primary) hypertension; R79.89 Other specified abnormal findings of blood chemistry; M19.90 Unspecified osteoarthritis, unspecified site; F32.A Depression, unspecified; F41.9 Anxiety disorder, unspecified; R77.8 Other specified abnormalities of plasma proteins; G43.909 Migraine, unspecified, not intractable, without status migrainosus; K21.9 Gastro-esophageal reflux disease without esophagitis; D70.9 Neutropenia, unspecified; E78.00 Pure hypercholesterolemia, unspecified; E03.9 Hypothyroidism, unspecified; F20.9 Schizophrenia, unspecified; Z86.73 Personal history of transient ischemic attack (TIA), and cerebral infarction without residual deficits; I25.2 Old myocardial infarction; Z88.0 Allergy status to penicillin; Z68.30 Body mass index [BMI] 30.0-30.9, adult; Z79.899 Other long term (current) drug therapy; Z87.440 Personal history of urinary (tract) infections; Z98.51 Tubal ligation status
CPT/HCPCS: 74022; 74176; 80048; 80053; 81003; 83690; 83735; 84443; 84484; 85025; 93005; 97162; 97165; 97535; 99285; C9113; J1200; J1644; J2270; J2405; J7030

== ENCOUNTER 2022-11-15 11:39 | Emergency (ER) | payer MEDICARE, OTHER ==
[~2022-11-15] VITALS: Ht 167.6 cm; Wt 80.0 kg
[~2022-11-15 11:39] MED LIST changes: +AMLO-257 PO; -ASPI-1450 PO; +ASPI81 PO; -ATOR40TA28 PO; +ATOR40TA71 PO; -BISA-151 PO; +BISA10SU11 PR; +BUSP10TA3 PO; -BUSP5TAB20 PO; -CARV3 PO; +DULO20CA71 PO; -ESOM20SU2 PO; +HYDR-4174 PO; -HYDR-4723 PO; -HYDR25TA PO; +LORA10TA7 PO; +LOSA25TA2 PO; +PANT40TA54 PO; +POLY17PO47 PO; -TRAZ-252 PO; +TRAZ150T80 PO
[2022-11-15 12:02] VITALS: TEMP 98.6
[2022-11-15 13:44] LABS: BASOPHILS % (AUTO) 1.1 % (0.0-2.0); EOSINOPHILS % (AUTO) 3.9 % (1.0-6.0); HEMATOCRIT 30.4 % (36-46); HEMOGLOBIN 9.9 g/dL (12.0-16.0); LYMPHOCYTES % (AUTO) 34.5 % (22.0-44.0); MEAN CORPUSCULAR HEMOGLOBIN 28.3 pg (26.0-34.0); MEAN CORPUSCULAR HGB CONC 32.5 G/dL (31.0-37.0); MEAN CORPUSCULAR VOLUME 87 fL (80-100); MONOCYTES # (AUTO) 0.3 K/uL (0.1-1.0); MONOCYTES % (AUTO) 8.9 % (2.0-9.0); NEUTROPHILS # (AUTO) 1.5 K/uL (1.8-7.7); NEUTROPHILS % (AUTO) 51.6 % (40.0-70.0); PLATELET COUNT (AUTO) 295 K/uL (150-450); RED CELL DISTRIBUTION WIDTH 15.8 % (11.5-14.5)
[2022-11-15 13:55] LABS: ANION GAP 7 mmol/L (8-16); CALCIUM, TOTAL 8.6 mg/dL (8.8-10.5); CARBON DIOXIDE 29 mmol/L (22-29); CHLORIDE 102 mmol/L (98-107); CREATININE 1.02 mg/dL (0.60-1.30); GLOMERULAR FILTR. RATE CALC > 60 mL/min (>60); GLUCOSE,RANDOM 104 mg/dL (70-110); POTASSIUM 3.4 mmol/L (3.5-5.1); SODIUM SERUM 138 mmol/L (136-145)
[2022-11-15] MEDS ORDERED: ACETAMINOPHEN 500 MG TABLET PO ONE (14:00)
[2022-11-15 14:29] VITALS: BP 128/66; PULSE 63; RESP 16
[2022-11-15] MEDS ORDERED: ONDANSETRON HCL 4 MG TABLET PO ONE (14:30)
== END 2022-11-15 15:38 | disposition home or self-care (01) ==
LOC: EMS 11:39
DX: R10.13 Epigastric pain (principal); F41.9 Anxiety disorder, unspecified; M19.90 Unspecified osteoarthritis, unspecified site; F32.A Depression, unspecified; I10 Essential (primary) hypertension; E03.9 Hypothyroidism, unspecified; G43.909 Migraine, unspecified, not intractable, without status migrainosus; F20.9 Schizophrenia, unspecified; Z98.51 Tubal ligation status; Z98.890 Other specified postprocedural states; Z88.0 Allergy status to penicillin
CPT/HCPCS: 99284; 80048; 84484; 85025; 36415; 93005; Q0162

== ENCOUNTER 2022-11-18 15:32 | Emergency (ER) | payer MEDICARE, OTHER ==
[~2022-11-18] VITALS: Ht 167.6 cm; Wt 95.5 kg
[2022-11-18 15:41] VITALS: TEMP 98.8
[2022-11-18 17:20] LABS: EOSINOPHILS % (AUTO) 4.5 % (1.0-6.0); HEMATOCRIT 31.4 % (36-46); HEMOGLOBIN 10.1 g/dL (12.0-16.0); LYMPHOCYTES # (AUTO) 1.1 K/uL (1.0-4.8); MEAN CORPUSCULAR HGB CONC 32.2 G/dL (31.0-37.0); MEAN CORPUSCULAR VOLUME 87 fL (80-100); MONOCYTES # (AUTO) 0.3 K/uL (0.1-1.0); MONOCYTES % (AUTO) 11.3 % (2.0-9.0); NEUTROPHILS # (AUTO) 1.1 K/uL (1.8-7.7); NEUTROPHILS % (AUTO) 43.2 % (40.0-70.0); PLATELET COUNT (AUTO) 300 K/uL (150-450); RED BLOOD CELL COUNT(AUTO) 3.61 MIL/uL (4.00-5.20); RED CELL DISTRIBUTION WIDTH 15.8 % (11.5-14.5)
[2022-11-18 17:29] LABS: ANION GAP 9 mmol/L (8-16); CALCIUM, TOTAL 9.1 mg/dL (8.8-10.5); CARBON DIOXIDE 26 mmol/L (22-29); CHLORIDE 100 mmol/L (98-107); CREATININE 0.89 mg/dL (0.60-1.30); GLOMERULAR FILTR. RATE CALC > 60 mL/min (>60); GLUCOSE,RANDOM 101 mg/dL (70-110); POTASSIUM 3.5 mmol/L (3.5-5.1); SODIUM SERUM 135 mmol/L (136-145)
[2022-11-18 19:44] VITALS: BP 161/71; PULSE 88; RESP 20
== END 2022-11-18 19:45 | disposition home or self-care (01) ==
LOC: EMS 15:32
DX: R53.1 Weakness (principal); I10 Essential (primary) hypertension; F41.9 Anxiety disorder, unspecified; M19.90 Unspecified osteoarthritis, unspecified site; F32.A Depression, unspecified; E03.9 Hypothyroidism, unspecified; G43.909 Migraine, unspecified, not intractable, without status migrainosus; F20.9 Schizophrenia, unspecified; Z98.51 Tubal ligation status; Z98.890 Other specified postprocedural states; Z88.0 Allergy status to penicillin
CPT/HCPCS: 80048; 84484; 85025; 93005; 99284

== ENCOUNTER 2022-11-22 14:45 | Emergency (ER) | payer OTHER ==
[~2022-11-22] VITALS: Ht 167.6 cm; Wt 75.0 kg
[2022-11-22 15:00] VITALS: TEMP 98.3
[2022-11-22] MEDS ORDERED: ACETAMINOPHEN 500 MG TABLET PO ONE (16:00)
[2022-11-22 18:00] VITALS: BP 150/69; PULSE 69; RESP 16
[2022-11-22 18:09] LABS: BASOPHILS % (AUTO) 2.4 % (0.0-2.0); EOSINOPHILS % (AUTO) 2.6 % (1.0-6.0); HEMATOCRIT 32.8 % (36-46); HEMOGLOBIN 10.8 g/dL (12.0-16.0); LYMPHOCYTES # (AUTO) 1.2 K/uL (1.0-4.8); MEAN CORPUSCULAR HEMOGLOBIN 28.8 pg (26.0-34.0); MEAN CORPUSCULAR HGB CONC 33.1 G/dL (31.0-37.0); MEAN CORPUSCULAR VOLUME 87 fL (80-100); MONOCYTES # (AUTO) 0.3 K/uL (0.1-1.0); MONOCYTES % (AUTO) 9.3 % (2.0-9.0); NEUTROPHILS % (AUTO) 53.7 % (40.0-70.0); PLATELET COUNT (AUTO) 298 K/uL (150-450); RED BLOOD CELL COUNT(AUTO) 3.76 MIL/uL (4.00-5.20); RED CELL DISTRIBUTION WIDTH 16.5 % (11.5-14.5)
[2022-11-22 18:15] LABS: ANION GAP 9 mmol/L (8-16); CALCIUM, TOTAL 8.7 mg/dL (8.8-10.5); CARBON DIOXIDE 24 mmol/L (22-29); CHLORIDE 97 mmol/L (98-107); CREATININE 0.96 mg/dL (0.60-1.30); GLOMERULAR FILTR. RATE CALC > 60 mL/min (>60); GLUCOSE,RANDOM 88 mg/dL (70-110); POTASSIUM 3.5 mmol/L (3.5-5.1); SODIUM SERUM 130 mmol/L (136-145)
== END 2022-11-23 00:39 | disposition home or self-care (01) ==
LOC: EMS 14:45
DX: R42 Dizziness and giddiness (principal); R77.8 Other specified abnormalities of plasma proteins; I20.9 Angina pectoris, unspecified; I10 Essential (primary) hypertension; F41.9 Anxiety disorder, unspecified; M19.90 Unspecified osteoarthritis, unspecified site; F32.A Depression, unspecified; E03.9 Hypothyroidism, unspecified; G43.909 Migraine, unspecified, not intractable, without status migrainosus; F20.9 Schizophrenia, unspecified; Z98.51 Tubal ligation status; Z98.890 Other specified postprocedural states
CPT/HCPCS: 71045; 80048; 84484; 85025; 93005; 99285; 36415-L1; 36415-TC

== ENCOUNTER 2022-12-04 01:19 | Emergency (ER) | payer OTHER ==
[~2022-12-04] VITALS: Ht 167.6 cm; Wt 109.1 kg
[2022-12-04 01:46] VITALS: TEMP 98.4
[2022-12-04 02:18] LABS: EOSINOPHILS % (AUTO) 3.7 % (1.0-6.0); HEMOGLOBIN 9.2 g/dL (12.0-16.0); LYMPHOCYTES # (AUTO) 1.2 K/uL (1.0-4.8); LYMPHOCYTES % (AUTO) 31.6 % (22.0-44.0); MEAN CORPUSCULAR HEMOGLOBIN 28.8 pg (26.0-34.0); MEAN CORPUSCULAR VOLUME 87 fL (80-100); MONOCYTES # (AUTO) 0.3 K/uL (0.1-1.0); MONOCYTES % (AUTO) 7.7 % (2.0-9.0); NEUTROPHILS # (AUTO) 2.2 K/uL (1.8-7.7); PLATELET COUNT (AUTO) 207 K/uL (150-450); RED BLOOD CELL COUNT(AUTO) 3.21 MIL/uL (4.00-5.20); RED CELL DISTRIBUTION WIDTH 16.9 % (11.5-14.5)
[2022-12-04 02:36] LABS: ANION GAP 10 mmol/L (8-16); CALCIUM, TOTAL 8.7 mg/dL (8.8-10.5); CARBON DIOXIDE 26 mmol/L (22-29); CHLORIDE 103 mmol/L (98-107); CREATININE 0.96 mg/dL (0.60-1.30); GLOMERULAR FILTR. RATE CALC > 60 mL/min (>60); GLUCOSE,RANDOM 100 mg/dL (70-110); POTASSIUM 4.2 mmol/L (3.5-5.1); SODIUM SERUM 139 mmol/L (136-145)
[2022-12-04 02:42] LABS: ALANINE AMINOTRANSFERASE 11 U/L (12-78); ALBUMIN 3.1 g/dL (3.4-5.0); ALKALINE PHOSPHATASE 66 U/L (46-116); ASPARTATE AMINOTRANSFERASE 5 U/L (15-37); BILIRUBIN,TOTAL 0.2 mg/dL (0.1-1.0); CREATINE KINASE, TOTAL ONLY 41 U/L (26-192); TOTAL PROTEIN, SERUM 6.1 g/dL (6.4-8.2)
[2022-12-04 02:43] LABS: APPEARANCE,URINE CLEAR (CLEAR); BILIRUBIN,URINE NEGATIVE (NEGATIVE); GLUCOSE, URINE (UA) NEGATIVE (NEGATIVE); KETONES,URINE NEGATIVE (NEGATIVE); LEUKOCYTE ESTERASE ,URINE NEGATIVE (NEGATIVE); NITRATE,URINE NEGATIVE (NEGATIVE); OCCULT BLOOD,URINE NEGATIVE (NEGATIVE); PROTEIN,URINE NEGATIVE (NEGATIVE); SPECIFIC GRAVITIY, URINE 1.022 (1.003-1.030); UROBILINOGEN,URINE <=1.0 mg/dL (<=1.0)
[2022-12-04 02:51] LABS: B-TYPE NATRIURETIC PEPTIDE 24 pg/mL (0-100)
[2022-12-04] MEDS ORDERED: FAMOTIDINE 20 MG TABLET PO ONE (05:15)
[2022-12-04] MEDS ORDERED: FAMOTIDINE 20 MG/2 ML VIAL IVP ONE (05:15)
[2022-12-04] MEDS ORDERED: PB/HYOSCY/ATR/SCOP/LIDO/MAALOX 55 ML BOTTLE PO ONE (05:15)
[2022-12-04] MEDS ORDERED: KETOROLAC TROMETHAMINE 30 MG/ML VIAL IVP ONE (05:15)
[2022-12-04 08:28] VITALS: BP 150/87; PULSE 70; RESP 17
== END 2022-12-04 08:38 | disposition home or self-care (01) ==
LOC: EMS 01:24
DX: R07.89 Other chest pain (principal); K21.9 Gastro-esophageal reflux disease without esophagitis; I10 Essential (primary) hypertension; E03.9 Hypothyroidism, unspecified; F32.A Depression, unspecified; F41.9 Anxiety disorder, unspecified; D64.9 Anemia, unspecified; Z88.0 Allergy status to penicillin; Z79.82 Long term (current) use of aspirin; Z79.899 Other long term (current) drug therapy
CPT/HCPCS: 80053; 81003; 82550; 83880; 84484; 85025; 93005; 99284

== ENCOUNTER 2022-12-10 19:53 | Emergency (ER) | payer OTHER ==
[~2022-12-10] VITALS: Ht 167.6 cm; Wt 70.5 kg
[2022-12-10 20:10] VITALS: TEMP 97.8
[2022-12-10 21:15] LABS: BASOPHILS % (AUTO) 1.5 % (0.0-2.0); EOSINOPHILS % (AUTO) 6.8 % (1.0-6.0); HEMATOCRIT 25.9 % (36-46); HEMOGLOBIN 8.3 g/dL (12.0-16.0); LYMPHOCYTES # (AUTO) 0.9 K/uL (1.0-4.8); LYMPHOCYTES % (AUTO) 46.9 % (22.0-44.0); MEAN CORPUSCULAR HEMOGLOBIN 28.3 pg (26.0-34.0); MEAN CORPUSCULAR HGB CONC 32.2 G/dL (31.0-37.0); MEAN CORPUSCULAR VOLUME 88 fL (80-100); MONOCYTES # (AUTO) 0.2 K/uL (0.1-1.0); MONOCYTES % (AUTO) 11.8 % (2.0-9.0); NEUTROPHILS # (AUTO) 0.6 K/uL (1.8-7.7); PLATELET COUNT (AUTO) 235 K/uL (150-450); RED BLOOD CELL COUNT(AUTO) 2.95 MIL/uL (4.00-5.20); RED CELL DISTRIBUTION WIDTH 17.6 % (11.5-14.5)
[2022-12-10 21:18] LABS: B-TYPE NATRIURETIC PEPTIDE 31 pg/mL (0-100)
[2022-12-10 21:21] LABS: ANION GAP 9 mmol/L (8-16); CALCIUM, TOTAL 8.3 mg/dL (8.8-10.5); CARBON DIOXIDE 24 mmol/L (22-29); CHLORIDE 105 mmol/L (98-107); CREATININE 0.88 mg/dL (0.60-1.30); GLOMERULAR FILTR. RATE CALC > 60 mL/min (>60); GLUCOSE,RANDOM 94 mg/dL (70-110); POTASSIUM 3.6 mmol/L (3.5-5.1); SODIUM SERUM 138 mmol/L (136-145)
[2022-12-10 21:27] LABS: ALANINE AMINOTRANSFERASE 9 U/L (12-78); ALBUMIN 2.9 g/dL (3.4-5.0); ALKALINE PHOSPHATASE 65 U/L (46-116); ASPARTATE AMINOTRANSFERASE 12 U/L (15-37); BILIRUBIN,TOTAL 0.2 mg/dL (0.1-1.0); LIPASE 27 U/L (16-77); TOTAL PROTEIN, SERUM 5.7 g/dL (6.4-8.2)
[2022-12-10 21:45] VITALS: BP 132/57; PULSE 47; RESP 18
== END 2022-12-10 23:00 | disposition home or self-care (01) ==
LOC: EMS 19:54
DX: R07.89 Other chest pain (principal); R00.1 Bradycardia, unspecified; F41.9 Anxiety disorder, unspecified; M19.90 Unspecified osteoarthritis, unspecified site; F32.A Depression, unspecified; E03.9 Hypothyroidism, unspecified; G43.909 Migraine, unspecified, not intractable, without status migrainosus; F20.9 Schizophrenia, unspecified; Z98.51 Tubal ligation status; Z98.890 Other specified postprocedural states; Z88.0 Allergy status to penicillin
CPT/HCPCS: 71045; 80053; 83690; 83880; 84484; 85025; 93005; 93041; 99285; 36415-L1; 36415-TC

== ENCOUNTER 2023-01-02 18:25 | Emergency (ER) | payer MEDICARE, OTHER ==
[~2023-01-02] VITALS: Ht 165.1 cm; Wt 70.0 kg
[~2023-01-02 18:25] MED LIST changes: +LOSA-417 PO; -LOSA25TA2 PO
[2023-01-02 18:41] VITALS: TEMP 98.3
[2023-01-02 20:13] LABS: APPEARANCE,URINE CLEAR (CLEAR); BILIRUBIN,URINE NEGATIVE (NEGATIVE); COLOR,URINE YELLOW (YELLOW); GLUCOSE, URINE (UA) NEGATIVE (NEGATIVE); KETONES,URINE NEGATIVE (NEGATIVE); LEUKOCYTE ESTERASE ,URINE TRACE (NEGATIVE); NITRATE,URINE NEGATIVE (NEGATIVE); OCCULT BLOOD,URINE NEGATIVE (NEGATIVE); PROTEIN,URINE TRACE mg/dL (NEGATIVE); SPECIFIC GRAVITIY, URINE 1.038 (1.003-1.030)
[2023-01-02 20:21] LABS: BACTERIA,URINE Rare /HPF (None Seen); RBC,URINE 0-2 /HPF (0-2); SQUAMOUS EPITHELIAL CELL,UR Moderate /LPF (None Seen)
[2023-01-02 22:01] VITALS: BP 153/57; PULSE 105; RESP 18
[2023-01-02] MEDS ORDERED: PB/HYOSCY/ATR/SCOP/LIDO/MAALOX 55 ML BOTTLE PO ONE (22:15)
== END 2023-01-02 23:27 | disposition home or self-care (01) ==
LOC: EMS 18:26
DX: K21.9 Gastro-esophageal reflux disease without esophagitis (principal); I11.9 Hypertensive heart disease without heart failure; I25.2 Old myocardial infarction; G43.909 Migraine, unspecified, not intractable, without status migrainosus; F32.A Depression, unspecified; F41.9 Anxiety disorder, unspecified; Z98.51 Tubal ligation status; Z86.73 Personal history of transient ischemic attack (TIA), and cerebral infarction without residual deficits; Z88.0 Allergy status to penicillin; Z79.899 Other long term (current) drug therapy; Z98.890 Other specified postprocedural states
CPT/HCPCS: 81001; 99283

== ENCOUNTER 2023-04-15 12:30 | Emergency (ER) | payer OTHER ==
[~2023-04-15] VITALS: Ht 167.6 cm; Wt 76.4 kg
[~2023-04-15 12:30] MED LIST changes: -BENZ-227 PO; -BISA10SU11 PR; +FERR-72 PO; -HYDR-4174 PO; -HYPR15DR23 OS; +HYPR15DR23 OU; -IPRA0.2S49 IH; -LACT1CAP70 PO; -LIDO1ADH83 TP; -LORA10TA7 PO; -LOSA-417 PO; -MAGN-169 PO; -MULT-664 PO; -NITR0.4T52 SL; -ONDA-104 PO; -POLY17PO47 PO; -TRAZ150T80 PO
[2023-04-15 13:32] LABS: BASOPHILS % (AUTO) 0.7 % (0.0-2.0); EOSINOPHILS % (AUTO) 2.6 % (1.0-6.0); HEMATOCRIT 30.1 % (36-46); HEMOGLOBIN 9.7 g/dL (12.0-16.0); LYMPHOCYTES # (AUTO) 0.4 K/uL (1.0-4.8); LYMPHOCYTES % (AUTO) 8.9 % (22.0-44.0); MEAN CORPUSCULAR HEMOGLOBIN 27.5 pg (26.0-34.0); MEAN CORPUSCULAR HGB CONC 32.2 G/dL (31.0-37.0); MEAN CORPUSCULAR VOLUME 86 fL (80-100); MONOCYTES # (AUTO) 0.3 K/uL (0.1-1.0); NEUTROPHILS % (AUTO) 80.8 % (40.0-70.0); PLATELET COUNT (AUTO) 269 K/uL (150-450); RED BLOOD CELL COUNT(AUTO) 3.52 MIL/uL (4.00-5.20); RED CELL DISTRIBUTION WIDTH 19.3 % (11.5-14.5); WHITE BLOOD COUNT (AUTO) 4.9 K/uL (4.5-11.0)
[2023-04-15 13:41] LABS: ANION GAP 7 mmol/L (8-16); CALCIUM, TOTAL 8.9 mg/dL (8.8-10.5); CARBON DIOXIDE 28 mmol/L (22-29); CHLORIDE 102 mmol/L (98-107); CREATININE 1.05 mg/dL (0.60-1.30); GLOMERULAR FILTR. RATE CALC > 60 mL/min (>60); GLUCOSE,RANDOM 92 mg/dL (70-110); POTASSIUM 4.1 mmol/L (3.5-5.1); SODIUM SERUM 137 mmol/L (136-145); UREA NITROGEN, BLOOD 7 mg/dL (7-18)
[2023-04-15 13:45] LABS: PROTHROMBIN TIME 10.3 SEC (9.4-11.6)
[2023-04-15 13:47] LABS: ALANINE AMINOTRANSFERASE 22 U/L (12-78); ALKALINE PHOSPHATASE 85 U/L (46-116); ASPARTATE AMINOTRANSFERASE 16 U/L (15-37); BILIRUBIN,TOTAL 0.3 mg/dL (0.1-1.0); CREATINE KINASE, TOTAL ONLY 64 U/L (26-192); LIPASE 32 U/L (16-77); TOTAL PROTEIN, SERUM 7.8 g/dL (6.4-8.2)
[2023-04-15 13:50] LABS: TROPONIN I-HIGH SENSITIVITY 68 ng/L (<51)
[2023-04-15 13:55] LABS: COVID AG,FIA SOURCE NASAL SWAB
[2023-04-15] MEDS ORDERED: ACET-2080 PO (14:18)
[2023-04-15] MEDS ORDERED: ASPI-1450 PO (14:20)
[2023-04-15 14:25] LABS: INFLUENZA TYPE A NEGATIVE FOR TYPE A (NEGATIVE); INFLUENZA TYPE B NEGATIVE FOR TYPE B (NEGATIVE)
[2023-04-15] MEDS ORDERED: ACETAMINOPHEN/CODEINE 300-30 MG TABLET PO ONE (14:30)
[2023-04-15 14:33] LABS: SARS-COV2 (COVID) ANTIGEN,FIA Positive (Negative)
[2023-04-15 15:43] VITALS: BP 148/80; PULSE 64; RESP 16; TEMP 98.6
[2023-04-16] MEDS ORDERED: HYDR-4723 PO (15:36)
== END 2023-04-15 15:55 | disposition home or self-care (01) ==
LOC: EMS 12:32
DX: S46.912A Strain of unspecified muscle, fascia and tendon at shoulder and upper arm level, left arm, initial encounter (principal); R07.89 Other chest pain; F20.9 Schizophrenia, unspecified; F41.9 Anxiety disorder, unspecified; I10 Essential (primary) hypertension; F32.A Depression, unspecified; K21.9 Gastro-esophageal reflux disease without esophagitis; G43.909 Migraine, unspecified, not intractable, without status migrainosus; Z86.73 Personal history of transient ischemic attack (TIA), and cerebral infarction without residual deficits; Z87.440 Personal history of urinary (tract) infections; Z98.51 Tubal ligation status; Z88.0 Allergy status to penicillin; Z20.822 Contact with and (suspected) exposure to COVID-19; X58.XXXA Exposure to other specified factors, initial encounter; Y93.89 Activity, other specified; Y92.89 Other specified places as the place of occurrence of the external cause; Y99.8 Other external cause status
CPT/HCPCS: 71045; 80053; 82550; 83690; 83880; 84484; 85025; 85610; 85730; 87804; 93005; 99285

== ENCOUNTER 2023-05-07 20:32 | Inpatient (IN) | payer MEDICARE, OTHER ==
[~2023-05-07] VITALS: Ht 167.6 cm; Wt 76.0 kg
[~2023-05-07 20:32] MED LIST changes: +ASPI-1450 PO; -ASPI81 PO; +HYDR-4723 PO
[2023-05-07 22:02] LABS: BASOPHILS % (AUTO) 1.4 % (0.0-2.0); EOSINOPHILS % (AUTO) 3.7 % (1.0-6.0); HEMATOCRIT 27.6 % (36-46); LYMPHOCYTES # (AUTO) 1.1 K/uL (1.0-4.8); LYMPHOCYTES % (AUTO) 35.8 % (22.0-44.0); MEAN CORPUSCULAR HEMOGLOBIN 27.6 pg (26.0-34.0); MEAN CORPUSCULAR HGB CONC 32.6 G/dL (31.0-37.0); MEAN CORPUSCULAR VOLUME 85 fL (80-100); MONOCYTES # (AUTO) 0.3 K/uL (0.1-1.0); MONOCYTES % (AUTO) 9.2 % (2.0-9.0); NEUTROPHILS # (AUTO) 1.6 K/uL (1.8-7.7); NEUTROPHILS % (AUTO) 49.9 % (40.0-70.0); PLATELET COUNT (AUTO) 208 K/uL (150-450); RED BLOOD CELL COUNT(AUTO) 3.26 MIL/uL (4.00-5.20); RED CELL DISTRIBUTION WIDTH 19.6 % (11.5-14.5); WHITE BLOOD COUNT (AUTO) 3.2 K/uL (4.5-11.0)
[2023-05-07 22:11] LABS: CALCIUM, TOTAL 8.8 mg/dL (8.8-10.5); CREATININE 1.08 mg/dL (0.60-1.30)
[2023-05-07 22:16] LABS: PROTHROMBIN TIME 10.3 SEC (9.4-11.6)
[2023-05-07 22:18] LABS: ALBUMIN 3.3 g/dL (3.4-5.0); BILIRUBIN,TOTAL 0.1 mg/dL (0.1-1.0); TOTAL PROTEIN, SERUM 6.4 g/dL (6.4-8.2)
[2023-05-07 22:26] LABS: TROPONIN I-HIGH SENSITIVITY 82 ng/L (<51)
[2023-05-08] MEDS ORDERED: SODIUM CHLORIDE 0.9% 100 ML ONE (00:45)
[2023-05-08] MEDS ORDERED: IOHEXOL 350 MG/ML 100 ML VIAL ONE (00:46)
[2023-05-08] MEDS ORDERED: CefTRIAXone 1 GM/DEXTROSE 50 ML IV SCH (01:00)
[2023-05-08 01:08] LABS: COVID AG,FIA SOURCE NASAL SWAB
[2023-05-08] MEDS ORDERED: ALBUTEROL SULFATE 2.5 MG/0.5 ML NEB SOLUTION NEB PRN (01:15)
[2023-05-08] MEDS ORDERED: IPRATROPIUM BROMIDE 0.5 MG/2.5 ML NEB SOLUTION NEB PRN (01:15)
[2023-05-08] MEDS: ACETAMINOPHEN 325 MG TABLET PO PRN ×2 (01:20→05:25)
[2023-05-08] MEDS: AZITHROMYCIN 500 MG/NS 250 ML IV SCH (01:21)
[2023-05-08 01:28] LABS: SARS-COV2 (COVID) ANTIGEN,FIA Negative (Negative)
[2023-05-08 04:58] VITALS: BP 180/74; PULSE 55; RESP 18; TEMP 98.3
[2023-05-08] MEDS ORDERED: AmLODIPine BESYLATE 5 MG TABLET PO SCH ×2 (05:15→10:30)
[2023-05-08] MEDS ORDERED: INFLUENZA VIRUS VACCINE QVS 2023-24 (6MO+)/PF 60 MCG/0.5 ML SYRINGE IM. ONE (06:00)
[2023-05-08] MEDS ORDERED: SODIUM CHLORIDE 0.9% 500 ML IV ONE (08:22)
[2023-05-08] MEDS: CefTRIAXone 1 GM/DEXTROSE 50 ML IV SCH (08:27)
[2023-05-08] MEDS: HEPARIN SODIUM,PORCINE 5,000 UNITS/ML VIAL SQ SCH ×3 (08:28→23:11)
[2023-05-08] MEDS ORDERED: DOCUSATE SODIUM 100 MG CAPSULE PO SCH (09:00)
[2023-05-08] MEDS: BENZONATATE 100 MG CAPSULE PO PRN ×2 (10:12→21:08)
[2023-05-08 10:52] VITALS: BP 161/84; PULSE 99; RESP 19; TEMP 99
[2023-05-08] MEDS: HYDROCODONE/ACETAMINOPHEN 5-325 MG TABLET PO PRN ×2 (14:20→23:13)
[2023-05-08 16:04] VITALS: BP 137/56; PULSE 57; RESP 18; TEMP 98.4
[2023-05-08 20:00] VITALS: BP 139/60; PULSE 62; RESP 18; TEMP 98.8
[2023-05-08] MEDS: AmLODIPine BESYLATE 5 MG TABLET PO SCH (21:02)
[2023-05-08] MEDS: BusPIRone HCL 10 MG TABLET PO SCH (21:02)
[2023-05-08] MEDS: ONDANSETRON HCL 4 MG/2 ML VIAL IVP PRN (21:03)
[2023-05-08 23:36] VITALS: PULSE 62; RESP 20; O2SAT 98
[2023-05-08 23:51] VITALS: PULSE 68; RESP 20; O2SAT 99
[2023-05-09] MEDS: AZITHROMYCIN 500 MG/NS 250 ML IV SCH (01:35)
[2023-05-09 03:29] VITALS: BP 145/76; PULSE 68; RESP 20; TEMP 98.1
[2023-05-09] MEDS: ACETAMINOPHEN 325 MG TABLET PO PRN ×2 (03:30→23:03)
[2023-05-09] MEDS: BENZONATATE 100 MG CAPSULE PO PRN (04:26)
[2023-05-09] MEDS: LEVOTHYROXINE SODIUM 25 MCG TABLET PO SCH (04:55)
[2023-05-09 07:24] LABS: BASOPHILS % (AUTO) 1.4 % (0.0-2.0); EOSINOPHILS % (AUTO) 3.8 % (1.0-6.0); HEMATOCRIT 28.5 % (36-46); HEMOGLOBIN 9.4 g/dL (12.0-16.0); LYMPHOCYTES # (AUTO) 1.2 K/uL (1.0-4.8); LYMPHOCYTES % (AUTO) 37.9 % (22.0-44.0); MEAN CORPUSCULAR HGB CONC 33.1 G/dL (31.0-37.0); MEAN CORPUSCULAR VOLUME 85 fL (80-100); MONOCYTES # (AUTO) 0.3 K/uL (0.1-1.0); NEUTROPHILS # (AUTO) 1.6 K/uL (1.8-7.7); NEUTROPHILS % (AUTO) 47.9 % (40.0-70.0); PLATELET COUNT (AUTO) 213 K/uL (150-450); RED BLOOD CELL COUNT(AUTO) 3.36 MIL/uL (4.00-5.20); RED CELL DISTRIBUTION WIDTH 19.2 % (11.5-14.5); WHITE BLOOD COUNT (AUTO) 3.3 K/uL (4.5-11.0)
[2023-05-09 07:59] VITALS: BP 151/69; PULSE 72; RESP 20; TEMP 98.1
[2023-05-09 08:05] LABS: ANION GAP 10 mmol/L (8-16); CALCIUM, TOTAL 8.6 mg/dL (8.8-10.5); CARBON DIOXIDE 28 mmol/L (22-29); CHLORIDE 103 mmol/L (98-107); CREATININE 1.04 mg/dL (0.60-1.30); GLOMERULAR FILTR. RATE CALC > 60 mL/min (>60); GLUCOSE,RANDOM 92 mg/dL (70-110); POTASSIUM 3.6 mmol/L (3.5-5.1); SODIUM SERUM 141 mmol/L (136-145); UREA NITROGEN, BLOOD 12 mg/dL (7-18)
[2023-05-09] MEDS: HEPARIN SODIUM,PORCINE 5,000 UNITS/ML VIAL SQ SCH ×3 (08:42→23:03)
[2023-05-09] MEDS: ATORVASTATIN CALCIUM 40 MG TABLET PO SCH (08:42)
[2023-05-09] MEDS: ASPIRIN 81 MG CHEWABLE TABLET PO SCH (08:43)
[2023-05-09] MEDS: FERROUS SULFATE 325 MG EC TABLET PO SCH (08:43)
[2023-05-09] MEDS: DULoxetine HCL 20 MG CAPSULE PO SCH (08:43)
[2023-05-09] MEDS: PANTOPRAZOLE SODIUM 40 MG DR TABLET PO SCH (08:43)
[2023-05-09] MEDS: AmLODIPine BESYLATE 5 MG TABLET PO SCH ×2 (08:43→20:22)
[2023-05-09] MEDS: CLOPIDOGREL BISULFATE 75 MG TABLET PO SCH (08:43)
[2023-05-09] MEDS: DOCUSATE SODIUM 100 MG CAPSULE PO SCH (08:43)
[2023-05-09] MEDS: CHOLECALCIFEROL (VIT D3) 1,000 UNITS [25 MCG] TABLET PO SCH (08:43)
[2023-05-09] MEDS: BusPIRone HCL 10 MG TABLET PO SCH ×2 (08:43→20:22)
[2023-05-09] MEDS: HYDROCODONE/ACETAMINOPHEN 5-325 MG TABLET PO PRN ×2 (08:44→18:55)
[2023-05-09] MEDS: CefTRIAXone 1 GM/DEXTROSE 50 ML IV SCH (08:47)
[2023-05-09 11:25] LABS: APPEARANCE,URINE CLEAR (CLEAR); BILIRUBIN,URINE NEGATIVE (NEGATIVE); COLOR,URINE LIGHT YELLOW (YELLOW); GLUCOSE, URINE (UA) NEGATIVE (NEGATIVE); KETONES,URINE NEGATIVE (NEGATIVE); LEUKOCYTE ESTERASE ,URINE NEGATIVE (NEGATIVE); NITRATE,URINE NEGATIVE (NEGATIVE); OCCULT BLOOD,URINE NEGATIVE (NEGATIVE); PH,URINE 7.5 (5.0-8.0); PROTEIN,URINE NEGATIVE (NEGATIVE); SPECIFIC GRAVITIY, URINE 1.013 (1.003-1.030); UROBILINOGEN,URINE <=1.0 mg/dL (<=1.0)
[2023-05-09 11:54] LABS: RBC,URINE None Seen /HPF (0-2); SQUAMOUS EPITHELIAL CELL,UR Few /LPF (None Seen); WBC,URINE 0-2 /HPF (0-5)
[2023-05-09 11:55] LABS: BACTERIA,URINE None Seen /HPF (None Seen)
[2023-05-09] MEDS: ONDANSETRON HCL 4 MG/2 ML VIAL IVP PRN ×2 (12:26→18:55)
[2023-05-09 15:30] VITALS: BP 159/68; PULSE 69; RESP 20; TEMP 98.2
[2023-05-09 16:30] VITALS: BP 151/89; PULSE 81; RESP 22; TEMP 98
[2023-05-09 20:42] VITALS: BP 136/65; PULSE 67; RESP 20; TEMP 98.7
[2023-05-09] MEDS ORDERED: DiphenhydrAMINE HCL 25 MG CAPSULE PO PRN (22:45)
[2023-05-09] MEDS ORDERED: MELATONIN 3 MG TABLET PO PRN (22:45)
[2023-05-10] MEDS: AZITHROMYCIN 500 MG/NS 250 ML IV SCH (01:35)
[2023-05-10] MEDS: ONDANSETRON HCL 4 MG/2 ML VIAL IVP PRN (02:18)
[2023-05-10 03:43] VITALS: BP 152/70; PULSE 74; RESP 20; TEMP 98.3
[2023-05-10] MEDS: LEVOTHYROXINE SODIUM 25 MCG TABLET PO SCH (06:48)
[2023-05-10] MEDS: BENZONATATE 100 MG CAPSULE PO PRN (06:50)
[2023-05-10] MEDS: HEPARIN SODIUM,PORCINE 5,000 UNITS/ML VIAL SQ SCH (08:09)
[2023-05-10] MEDS: DULoxetine HCL 20 MG CAPSULE PO SCH (08:09)
[2023-05-10] MEDS: CefTRIAXone 1 GM/DEXTROSE 50 ML IV SCH (08:09)
[2023-05-10] MEDS: PANTOPRAZOLE SODIUM 40 MG DR TABLET PO SCH (08:09)
[2023-05-10] MEDS: DOCUSATE SODIUM 100 MG CAPSULE PO SCH (08:09)
[2023-05-10] MEDS: ATORVASTATIN CALCIUM 40 MG TABLET PO SCH (08:10)
[2023-05-10] MEDS: ASPIRIN 81 MG CHEWABLE TABLET PO SCH (08:10)
[2023-05-10] MEDS: FERROUS SULFATE 325 MG EC TABLET PO SCH (08:10)
[2023-05-10] MEDS: AmLODIPine BESYLATE 5 MG TABLET PO SCH (08:10)
[2023-05-10] MEDS: CLOPIDOGREL BISULFATE 75 MG TABLET PO SCH (08:10)
[2023-05-10] MEDS: BusPIRone HCL 10 MG TABLET PO SCH (08:10)
[2023-05-10] MEDS: CHOLECALCIFEROL (VIT D3) 1,000 UNITS [25 MCG] TABLET PO SCH (08:10)
[2023-05-10 09:16] VITALS: BP 154/76; PULSE 81; RESP 20; TEMP 98.4
[2023-05-10] MEDS: HYDROCODONE/ACETAMINOPHEN 5-325 MG TABLET PO PRN (10:34)
[2023-05-10] MEDS ORDERED: HYDR-4072 PO (16:39)
== END 2023-05-10 13:25 | disposition home or self-care (01) | DRG 202 ==
LOC: EMS 20:33 → AHU 05-08 02:08 → 6S 05-08 02:56
PROVIDERS: ADMIT Internal Medicine; ATTEND Internal Medicine
DX: J20.9 Acute bronchitis, unspecified (principal); J18.9 Pneumonia, unspecified organism; F41.9 Anxiety disorder, unspecified; F32.A Depression, unspecified; E78.5 Hyperlipidemia, unspecified; F20.9 Schizophrenia, unspecified; E03.9 Hypothyroidism, unspecified; N18.30 Chronic kidney disease, stage 3 unspecified; K76.0 Fatty (change of) liver, not elsewhere classified; R91.8 Other nonspecific abnormal finding of lung field; R79.89 Other specified abnormal findings of blood chemistry; K21.9 Gastro-esophageal reflux disease without esophagitis; G43.909 Migraine, unspecified, not intractable, without status migrainosus; I25.10 Atherosclerotic heart disease of native coronary artery without angina pectoris; I12.9 Hypertensive chronic kidney disease with stage 1 through stage 4 chronic kidney disease, or unspecified chronic kidney disease; I25.2 Old myocardial infarction; Z98.51 Tubal ligation status; Z88.0 Allergy status to penicillin; Z79.82 Long term (current) use of aspirin; Z79.899 Other long term (current) drug therapy; Z98.61 Coronary angioplasty status; Z86.16 Personal history of COVID-19; Z20.822 Contact with and (suspected) exposure to COVID-19; Z86.73 Personal history of transient ischemic attack (TIA), and cerebral infarction without residual deficits; D72.819 Decreased white blood cell count, unspecified
CPT/HCPCS: 71045; 71275; 80048; 80053; 81001; 82550; 83735; 83880; 84484; 85025; 85610; 85730; 87081; 93005; 94640; 99291; J0456; J0696; J1644; J2405; J7040; J7050; Q9967; 36415-L1; 36415-TC; J7613

== ENCOUNTER 2023-06-16 19:19 | Emergency (ER) | payer MEDICARE, OTHER ==
[~2023-06-16] VITALS: Ht 167.6 cm; Wt 77.3 kg
[~2023-06-16 19:19] MED LIST changes: -ACET-2247 PO; +ACET-66 PO; -AMLO-257 PO; +AMLO5TAB66 PO; +ASPI-1444 PO; -ASPI-1450 PO; -CALC500T37 PO; +CARV6.2534 PO; -CLOP75TA60 PO; -DOCU-385 PO; +DOCU100C33 PO; -FERR-72 PO; -HYDR-4723 PO; +LOSA-382 PO; +PANT20TA18 PO; -PANT40TA54 PO
[2023-06-16 19:22] VITALS: TEMP 98.2
[2023-06-16 22:03] LABS: BASOPHILS % (AUTO) 1.2 % (0.0-2.0); EOSINOPHILS % (AUTO) 2.8 % (1.0-6.0); HEMATOCRIT 30.1 % (36-46); HEMOGLOBIN 9.7 g/dL (12.0-16.0); LYMPHOCYTES # (AUTO) 1.2 K/uL (1.0-4.8); LYMPHOCYTES % (AUTO) 28.3 % (22.0-44.0); MEAN CORPUSCULAR HEMOGLOBIN 27.6 pg (26.0-34.0); MEAN CORPUSCULAR HGB CONC 32.2 G/dL (31.0-37.0); MEAN CORPUSCULAR VOLUME 86 fL (80-100); MONOCYTES # (AUTO) 0.3 K/uL (0.1-1.0); MONOCYTES % (AUTO) 7.2 % (2.0-9.0); NEUTROPHILS # (AUTO) 2.6 K/uL (1.8-7.7); NEUTROPHILS % (AUTO) 60.5 % (40.0-70.0); PLATELET COUNT (AUTO) 310 K/uL (150-450); RED BLOOD CELL COUNT(AUTO) 3.51 MIL/uL (4.00-5.20); RED CELL DISTRIBUTION WIDTH 18.1 % (11.5-14.5); WHITE BLOOD COUNT (AUTO) 4.2 K/uL (4.5-11.0)
[2023-06-16 22:16] LABS: ANION GAP 7 mmol/L (8-16); CALCIUM, TOTAL 9.5 mg/dL (8.8-10.5); CARBON DIOXIDE 30 mmol/L (22-29); CHLORIDE 103 mmol/L (98-107); GLOMERULAR FILTR. RATE CALC > 60 mL/min (>60); GLUCOSE,RANDOM 99 mg/dL (70-110); POTASSIUM 4.3 mmol/L (3.5-5.1); SODIUM SERUM 140 mmol/L (136-145); UREA NITROGEN, BLOOD 11 mg/dL (7-18)
[2023-06-16 22:24] LABS: LACTIC ACID 0.7 mmol/L (0.4-2.0)
[2023-06-16 22:27] LABS: TROPONIN I-HIGH SENSITIVITY 103 ng/L (<51)
[2023-06-16 22:30] LABS: ALANINE AMINOTRANSFERASE 18 U/L (12-78); ALBUMIN 3.7 g/dL (3.4-5.0); ALKALINE PHOSPHATASE 74 U/L (46-116); ASPARTATE AMINOTRANSFERASE 12 U/L (15-37); BILIRUBIN,TOTAL 0.2 mg/dL (0.1-1.0); LIPASE 19 U/L (16-77)
[2023-06-16] MEDS: CARVEDILOL 6.25 MG TABLET PO ONE (22:43)
[2023-06-16] MEDS: AmLODIPine BESYLATE 10 MG TABLET PO ONE (22:44)
[2023-06-16] MEDS: ACETAMINOPHEN 500 MG TABLET PO ONE (22:49)
[2023-06-17 00:24] VITALS: BP 162/75; PULSE 72; RESP 18
[2023-06-17 00:57] LABS: TROPONIN I-HIGH SENSITIVITY 99 ng/L (<51)
[2023-06-17] MEDS ORDERED: ACETAMINOPHEN 500 MG TABLET PO ONE (01:45)
== END 2023-06-17 02:33 | disposition home or self-care (01) ==
LOC: EMS 21:36
DX: R79.89 Other specified abnormal findings of blood chemistry (principal); R51.9 Headache, unspecified; F20.9 Schizophrenia, unspecified; F41.9 Anxiety disorder, unspecified; M19.90 Unspecified osteoarthritis, unspecified site; F32.A Depression, unspecified; E03.9 Hypothyroidism, unspecified; I10 Essential (primary) hypertension; Z98.51 Tubal ligation status; Z91.148 Patient's other noncompliance with medication regimen for other reason; Z98.890 Other specified postprocedural states
CPT/HCPCS: 71045; 80053; 83605; 83690; 84484; 85025; 93005; 99284; 36415-L1; 36415-TC

== ENCOUNTER 2023-07-03 10:33 | Emergency (ER) | payer MEDICARE, OTHER ==
[~2023-07-03] VITALS: Ht 162.6 cm; Wt 79.5 kg
[2023-07-03 10:43] VITALS: TEMP 98.2
[2023-07-03] MEDS ORDERED: ONDANSETRON HCL 4 MG TABLET PO ONE (11:15)
[2023-07-03] MEDS ORDERED: ACET-66 PO (11:48)
[2023-07-03] MEDS ORDERED: CYAN100099 PO (11:48)
[2023-07-03] MEDS ORDERED: LISI-893 PO (11:48)
[2023-07-03 11:50] VITALS: BP 142/70; PULSE 89; RESP 16
[2023-07-04] MEDS ORDERED: LOSA-382 PO (06:19)
[2023-07-04] MEDS ORDERED: DIPH-1243 PO (06:19)
[2023-07-05] MEDS ORDERED: HYDR-3831 PO (05:25)
== END 2023-07-03 13:09 | disposition home or self-care (01) ==
LOC: EMS 10:33
DX: F20.0 Paranoid schizophrenia (principal); I10 Essential (primary) hypertension; F41.9 Anxiety disorder, unspecified; M19.90 Unspecified osteoarthritis, unspecified site; F32.A Depression, unspecified; E03.9 Hypothyroidism, unspecified; G43.909 Migraine, unspecified, not intractable, without status migrainosus; Z98.51 Tubal ligation status; Z98.890 Other specified postprocedural states; Z88.0 Allergy status to penicillin
CPT/HCPCS: 99282; Q0162; 99283

== ENCOUNTER 2023-07-04 05:04 | Emergency (ER) | payer MEDICARE, OTHER ==
[~2023-07-04] VITALS: Ht 167.6 cm; Wt 77.0 kg
[~2023-07-04 05:04] MED LIST changes: +CYAN100099 PO; +LISI-893 PO
[2023-07-04 05:19] VITALS: TEMP 98.5
[2023-07-04] MEDS ORDERED: DIPH-1243 PO (06:19)
[2023-07-04] MEDS ORDERED: LOSA-382 PO (06:19)
[2023-07-04 07:15] VITALS: BP 155/70; PULSE 67; RESP 20
[2023-07-04] MEDS: DiphenhydrAMINE HCL 25 MG CAPSULE PO ONE (07:17)
[2023-07-04] MEDS: ACETAMINOPHEN 500 MG TABLET PO ONE (07:17)
[2023-07-04] MEDS: PredniSONE 20 MG TABLET PO ONE (07:18)
[2023-07-05] MEDS ORDERED: HYDR-3831 PO (05:25)
== END 2023-07-04 08:03 | disposition home or self-care (01) ==
LOC: EMS 05:06
DX: M79.89 Other specified soft tissue disorders (principal); T46.4X5A Adverse effect of angiotensin-converting-enzyme inhibitors, initial encounter; I10 Essential (primary) hypertension; F41.9 Anxiety disorder, unspecified; M19.90 Unspecified osteoarthritis, unspecified site; F32.A Depression, unspecified; G43.909 Migraine, unspecified, not intractable, without status migrainosus; F20.9 Schizophrenia, unspecified; Z98.51 Tubal ligation status; Z88.0 Allergy status to penicillin; Z88.8 Allergy status to other drugs, medicaments and biological substances; X58.XXXA Exposure to other specified factors, initial encounter; Y92.89 Other specified places as the place of occurrence of the external cause
CPT/HCPCS: 99283; J7512

== ENCOUNTER 2023-07-18 06:06 | Emergency (ER) | payer MEDICARE, OTHER ==
[~2023-07-18] VITALS: Ht 170.2 cm; Wt 77.2 kg
[~2023-07-18 06:06] MED LIST changes: +DIPH-1243 PO; +HYDR-3831 PO; -LISI-893 PO
[2023-07-18 07:15] VITALS: BP 130/50; PULSE 64; RESP 20; TEMP 98.9
[2023-07-18 07:24] LABS: EOSINOPHILS % (AUTO) 4.6 % (1.0-6.0); HEMATOCRIT 32.1 % (36-46); HEMOGLOBIN 10.3 g/dL (12.0-16.0); MEAN CORPUSCULAR HEMOGLOBIN 27.7 pg (26.0-34.0); MEAN CORPUSCULAR HGB CONC 31.9 G/dL (31.0-37.0); MEAN CORPUSCULAR VOLUME 87 fL (80-100); MONOCYTES # (AUTO) 0.3 K/uL (0.1-1.0); MONOCYTES % (AUTO) 9.9 % (2.0-9.0); NEUTROPHILS # (AUTO) 1.4 K/uL (1.8-7.7); NEUTROPHILS % (AUTO) 49.5 % (40.0-70.0); PLATELET COUNT (AUTO) 232 K/uL (150-450); RED CELL DISTRIBUTION WIDTH 17.5 % (11.5-14.5); WHITE BLOOD COUNT (AUTO) 2.8 K/uL (4.5-11.0)
[2023-07-18 07:33] LABS: CALCIUM, TOTAL 8.7 mg/dL (8.8-10.5); CREATININE 1.21 mg/dL (0.60-1.30); POTASSIUM 4.2 mmol/L (3.5-5.1)
[2023-07-18] MEDS: ONDANSETRON HCL 4 MG/2 ML VIAL IVP ONE (07:47)
[2023-07-18] MEDS: SODIUM CHLORIDE 0.9% 500 ML IV ONE (07:47)
[2023-07-18] MEDS: IPRATROPIUM BROMIDE HFA 17 MCG/PUFF 12.9 GM INHALER IH ONE (09:08)
== END 2023-07-18 11:15 | disposition home or self-care (01) ==
LOC: EMS 06:07
DX: E86.0 Dehydration (principal); K11.7 Disturbances of salivary secretion; R11.2 Nausea with vomiting, unspecified; F41.9 Anxiety disorder, unspecified; M19.90 Unspecified osteoarthritis, unspecified site; F32.A Depression, unspecified; E03.9 Hypothyroidism, unspecified; G43.909 Migraine, unspecified, not intractable, without status migrainosus; F20.9 Schizophrenia, unspecified; I10 Essential (primary) hypertension; Z98.51 Tubal ligation status; Z88.0 Allergy status to penicillin; Z88.8 Allergy status to other drugs, medicaments and biological substances
CPT/HCPCS: 99283; 96374; 80048; 85025; 36415; J2405; J7040; J3535

== ENCOUNTER 2023-07-22 12:44 | Emergency (ER) | payer MEDICARE, OTHER ==
[~2023-07-22] VITALS: Ht 167.6 cm; Wt 77.0 kg
[~2023-07-22 12:44] MED LIST changes: -CARV6.2534 PO; -CYAN100099 PO; -DIPH-1243 PO; -HYDR-3831 PO; -LOSA-382 PO
[2023-07-22 13:03] VITALS: TEMP 98.3
[2023-07-22] MEDS: FAMOTIDINE 20 MG TABLET PO ONE (14:21)
[2023-07-22] MEDS: MAG HYDROX/ALUMINUM HYD/SIMETH 30 ML SUSPENSION UDCUP PO ONE (14:21)
[2023-07-22] MEDS: ACETAMINOPHEN 500 MG TABLET PO ONE (14:21)
[2023-07-22 15:09] LABS: BASOPHILS % (AUTO) 0.9 % (0.0-2.0); EOSINOPHILS % (AUTO) 3.4 % (1.0-6.0); HEMOGLOBIN 10.4 g/dL (12.0-16.0); LYMPHOCYTES % (AUTO) 43.5 % (22.0-44.0); MEAN CORPUSCULAR HGB CONC 32.4 G/dL (31.0-37.0); MEAN CORPUSCULAR VOLUME 86 fL (80-100); MONOCYTES # (AUTO) 0.3 K/uL (0.1-1.0); MONOCYTES % (AUTO) 11.3 % (2.0-9.0); NEUTROPHILS % (AUTO) 40.9 % (40.0-70.0); PLATELET COUNT (AUTO) 212 K/uL (150-450); RED CELL DISTRIBUTION WIDTH 16.4 % (11.5-14.5); WHITE BLOOD COUNT (AUTO) 2.4 K/uL (4.5-11.0)
[2023-07-22 15:12] LABS: ANION GAP 6 mmol/L (8-16); CALCIUM, TOTAL 8.9 mg/dL (8.8-10.5); CARBON DIOXIDE 29 mmol/L (22-29); CHLORIDE 105 mmol/L (98-107); CREATININE 1.06 mg/dL (0.60-1.30); GLOMERULAR FILTR. RATE CALC > 60 mL/min (>60); GLUCOSE,RANDOM 92 mg/dL (70-110); SODIUM SERUM 140 mmol/L (136-145); UREA NITROGEN, BLOOD 11 mg/dL (7-18)
[2023-07-22 15:17] LABS: ALANINE AMINOTRANSFERASE 16 U/L (12-78); ALBUMIN 3.4 g/dL (3.4-5.0); ALKALINE PHOSPHATASE 81 U/L (46-116); ASPARTATE AMINOTRANSFERASE 11 U/L (15-37); BILIRUBIN,TOTAL 0.2 mg/dL (0.1-1.0); LIPASE 20 U/L (16-77); TOTAL PROTEIN, SERUM 6.8 g/dL (6.4-8.2)
[2023-07-22] MEDS ORDERED: ONDA-104 PO (15:37)
[2023-07-22] MEDS: ONDANSETRON HCL 4 MG TABLET PO ONE (16:08)
[2023-07-22 18:05] VITALS: BP 143/65; PULSE 67; RESP 18
[2023-07-23] MEDS ORDERED: TRAZ-252 PO (19:39)
[2023-07-23] MEDS ORDERED: AMLO10TA55 PO (19:39)
[2023-07-23] MEDS ORDERED: FAMO40TA7 PO (19:39)
[2023-07-23] MEDS ORDERED: LOSA100T59 PO (19:39)
[2023-07-23] MEDS ORDERED: DICY20TA95 PO (19:39)
[2023-07-23] MEDS ORDERED: DICL100G60 TP (19:39)
[2023-07-23] MEDS ORDERED: LISI20TA24 PO (19:39)
== END 2023-07-22 20:18 | disposition home or self-care (01) ==
LOC: EMS 12:44
DX: R53.1 Weakness (principal); D64.9 Anemia, unspecified; I10 Essential (primary) hypertension; I25.10 Atherosclerotic heart disease of native coronary artery without angina pectoris; F41.9 Anxiety disorder, unspecified; F32.A Depression, unspecified; F20.9 Schizophrenia, unspecified; K21.9 Gastro-esophageal reflux disease without esophagitis; I25.2 Old myocardial infarction; G43.909 Migraine, unspecified, not intractable, without status migrainosus; K76.9 Liver disease, unspecified; Z86.73 Personal history of transient ischemic attack (TIA), and cerebral infarction without residual deficits; Z87.440 Personal history of urinary (tract) infections; Z98.51 Tubal ligation status; Z88.0 Allergy status to penicillin
CPT/HCPCS: 99283; 80053; 83690; 85025; 36415; Q0162; 99282

== ENCOUNTER 2023-07-23 18:33 | Emergency (ER) | payer MEDICARE, OTHER ==
[~2023-07-23] VITALS: Ht 160 cm; Wt 72.7 kg
[~2023-07-23 18:33] MED LIST changes: +ONDA-104 PO
[2023-07-23 18:36] VITALS: BP 117/60; PULSE 82; RESP 18; TEMP 98.3
[2023-07-23] MEDS ORDERED: DICL100G60 TP (19:39)
[2023-07-23] MEDS ORDERED: LISI20TA24 PO (19:39)
[2023-07-23] MEDS ORDERED: LOSA100T59 PO (19:39)
[2023-07-23] MEDS ORDERED: TRAZ-252 PO (19:39)
[2023-07-23] MEDS ORDERED: DICY20TA95 PO (19:39)
[2023-07-23] MEDS: FAMOTIDINE 20 MG TABLET PO ONE (19:39)
[2023-07-23] MEDS ORDERED: FAMO40TA7 PO (19:39)
[2023-07-23] MEDS: MAG HYDROX/ALUMINUM HYD/SIMETH 30 ML SUSPENSION UDCUP PO ONE (19:39)
[2023-07-23] MEDS ORDERED: AMLO10TA55 PO (19:39)
== END 2023-07-23 22:16 | disposition home or self-care (01) ==
LOC: EMS 18:33
DX: R10.9 Unspecified abdominal pain (principal); D64.9 Anemia, unspecified; F41.9 Anxiety disorder, unspecified; I10 Essential (primary) hypertension; F32.A Depression, unspecified; F20.9 Schizophrenia, unspecified; I25.2 Old myocardial infarction; G43.909 Migraine, unspecified, not intractable, without status migrainosus; K21.9 Gastro-esophageal reflux disease without esophagitis; Z86.73 Personal history of transient ischemic attack (TIA), and cerebral infarction without residual deficits; Z87.440 Personal history of urinary (tract) infections; Z98.51 Tubal ligation status; Z88.0 Allergy status to penicillin
CPT/HCPCS: 99282; Z7502; Z7610

== ENCOUNTER 2023-07-30 20:16 | Emergency (ER) | payer MEDICARE, OTHER ==
[~2023-07-30] VITALS: Ht 167.6 cm; Wt 75.0 kg
[~2023-07-30 20:16] MED LIST changes: +AMLO10TA55 PO; -AMLO5TAB66 PO; +DICL100G60 TP; +DICY20TA95 PO; +FAMO40TA7 PO; +LOSA100T59 PO; +TRAZ-252 PO
[2023-07-30 20:28] VITALS: TEMP 98.4
[2023-07-30] MEDS ORDERED: SODIUM CHLORIDE 0.9% 1,000 ML IV ONE (21:30)
[2023-07-30] MEDS ORDERED: ONDANSETRON HCL 4 MG/2 ML VIAL IVP ONE (21:30)
[2023-07-30 22:08] LABS: BASOPHILS % (AUTO) 1.6 % (0.0-2.0); EOSINOPHILS % (AUTO) 4.2 % (1.0-6.0); HEMATOCRIT 31.1 % (36-46); HEMOGLOBIN 9.3 g/dL (12.0-16.0); LYMPHOCYTES # (AUTO) 1.3 K/uL (1.0-4.8); LYMPHOCYTES % (AUTO) 41.8 % (22.0-44.0); MEAN CORPUSCULAR HEMOGLOBIN 25.9 pg (26.0-34.0); MEAN CORPUSCULAR HGB CONC 29.8 G/dL (31.0-37.0); MEAN CORPUSCULAR VOLUME 87 fL (80-100); MONOCYTES # (AUTO) 0.2 K/uL (0.1-1.0); MONOCYTES % (AUTO) 7.5 % (2.0-9.0); NEUTROPHILS # (AUTO) 1.4 K/uL (1.8-7.7); NEUTROPHILS % (AUTO) 44.9 % (40.0-70.0); PLATELET COUNT (AUTO) 185 K/uL (150-450); RED BLOOD CELL COUNT(AUTO) 3.59 MIL/uL (4.00-5.20); RED CELL DISTRIBUTION WIDTH 16.7 % (11.5-14.5); WHITE BLOOD COUNT (AUTO) 3.1 K/uL (4.5-11.0)
[2023-07-30 22:18] LABS: ANION GAP 8 mmol/L (8-16); CALCIUM, TOTAL 8.6 mg/dL (8.8-10.5); CARBON DIOXIDE 28 mmol/L (22-29); CHLORIDE 105 mmol/L (98-107); CREATININE 0.96 mg/dL (0.60-1.30); GLOMERULAR FILTR. RATE CALC > 60 mL/min (>60); GLUCOSE,RANDOM 88 mg/dL (70-110); POTASSIUM 4.1 mmol/L (3.5-5.1); SODIUM SERUM 141 mmol/L (136-145); UREA NITROGEN, BLOOD 15 mg/dL (7-18)
[2023-07-30 22:24] LABS: ALANINE AMINOTRANSFERASE 18 U/L (12-78); ALBUMIN 3.2 g/dL (3.4-5.0); ALKALINE PHOSPHATASE 82 U/L (46-116); ASPARTATE AMINOTRANSFERASE 14 U/L (15-37); BILIRUBIN,TOTAL 0.1 mg/dL (0.1-1.0); LIPASE 43 U/L (16-77); TOTAL PROTEIN, SERUM 6.9 g/dL (6.4-8.2)
[2023-07-30 22:25] LABS: B-TYPE NATRIURETIC PEPTIDE 28 pg/mL (0-100)
[2023-07-30 22:26] LABS: LACTIC ACID 0.4 mmol/L (0.4-2.0)
[2023-07-30] MEDS: FAMOTIDINE 20 MG TABLET PO ONE (22:41)
[2023-07-30] MEDS: ONDANSETRON HCL 4 MG TABLET PO ONE (22:41)
[2023-07-30 22:59] LABS: TROPONIN I-HIGH SENSITIVITY 72 ng/L (<51)
[2023-07-31 02:29] VITALS: BP 178/97; PULSE 84; RESP 18
[2023-08-01] MEDS ORDERED: HYDR-4723 PO (10:42)
== END 2023-07-31 02:45 | disposition home or self-care (01) ==
LOC: EMS 20:16
DX: R11.2 Nausea with vomiting, unspecified (principal); D64.9 Anemia, unspecified; I10 Essential (primary) hypertension; F41.9 Anxiety disorder, unspecified; F32.A Depression, unspecified; F20.9 Schizophrenia, unspecified; K21.9 Gastro-esophageal reflux disease without esophagitis; I25.2 Old myocardial infarction; G43.909 Migraine, unspecified, not intractable, without status migrainosus; Z86.73 Personal history of transient ischemic attack (TIA), and cerebral infarction without residual deficits; Z87.440 Personal history of urinary (tract) infections; Z98.51 Tubal ligation status; Z88.0 Allergy status to penicillin
CPT/HCPCS: 99282; 80053; 83605; 83690; 83880; 84484; 85025; 36415; J2405; Q0162; J7030

== ENCOUNTER 2023-08-01 09:33 | Emergency (ER) | payer MEDICARE, OTHER ==
[~2023-08-01] VITALS: Ht 167.6 cm; Wt 85.0 kg
[2023-08-01 09:43] VITALS: TEMP 99.4
[2023-08-01] MEDS: HYDROCODONE/ACETAMINOPHEN 5-325 MG TABLET PO ONE (10:02)
[2023-08-01] MEDS: CloNIDine HCL 0.2 MG TABLET PO ONE (10:02)
[2023-08-01] MEDS ORDERED: HYDR-4723 PO (10:42)
[2023-08-01 10:43] VITALS: BP 130/84; PULSE 64; RESP 16
== END 2023-08-01 11:30 | disposition home or self-care (01) ==
LOC: EMS 09:36
DX: M25.511 Pain in right shoulder (principal); F41.9 Anxiety disorder, unspecified; F32.A Depression, unspecified; I10 Essential (primary) hypertension; E03.9 Hypothyroidism, unspecified; G43.909 Migraine, unspecified, not intractable, without status migrainosus; F20.9 Schizophrenia, unspecified; Z98.51 Tubal ligation status; Z98.890 Other specified postprocedural states; Z88.0 Allergy status to penicillin; Z88.8 Allergy status to other drugs, medicaments and biological substances
CPT/HCPCS: 99283

== ENCOUNTER 2023-08-01 22:33 | Emergency (ER) | payer MEDICARE, OTHER ==
[~2023-08-01] VITALS: Ht 162.6 cm; Wt 77.3 kg
[~2023-08-01 22:33] MED LIST changes: +HYDR-4723 PO
[2023-08-02] VITALS: BP 134/78; PULSE 65; RESP 16; TEMP 97.3
[2023-08-02] MEDS: TraZODone HCL 50 MG TABLET PO ONE (01:04)
[2023-08-02] MEDS: PB/HYOSCY/ATR/SCOP/LIDO/MAALOX 55 ML BOTTLE PO ONE (02:32)
== END 2023-08-02 07:01 | disposition home or self-care (01) ==
LOC: EMS 22:33
DX: M25.561 Pain in right knee (principal); R20.2 Paresthesia of skin; F41.9 Anxiety disorder, unspecified; M19.90 Unspecified osteoarthritis, unspecified site; F32.A Depression, unspecified; I10 Essential (primary) hypertension; E03.9 Hypothyroidism, unspecified; F20.9 Schizophrenia, unspecified; G43.909 Migraine, unspecified, not intractable, without status migrainosus; Z98.51 Tubal ligation status; Z98.890 Other specified postprocedural states; Z88.0 Allergy status to penicillin; Z88.8 Allergy status to other drugs, medicaments and biological substances
CPT/HCPCS: 99283

== ENCOUNTER 2023-08-23 18:17 | Emergency (ER) | payer OTHER ==
[~2023-08-23] VITALS: Ht 167.6 cm; Wt 78.0 kg
[~2023-08-23 18:17] MED LIST changes: -DICY20TA95 PO; -HYDR-4723 PO; -ONDA-104 PO; -TRAZ-252 PO
[2023-08-23 21:37] LABS: EOSINOPHILS % (AUTO) 4.3 % (1.0-6.0); HEMATOCRIT 30.3 % (36-46); HEMOGLOBIN 9.7 g/dL (12.0-16.0); LYMPHOCYTES # (AUTO) 1.2 K/uL (1.0-4.8); LYMPHOCYTES % (AUTO) 27.7 % (22.0-44.0); MEAN CORPUSCULAR HEMOGLOBIN 27.4 pg (26.0-34.0); MEAN CORPUSCULAR HGB CONC 32.1 G/dL (31.0-37.0); MEAN CORPUSCULAR VOLUME 85 fL (80-100); MONOCYTES # (AUTO) 0.6 K/uL (0.1-1.0); NEUTROPHILS # (AUTO) 2.2 K/uL (1.8-7.7); PLATELET COUNT (AUTO) 234 K/uL (150-450); RED BLOOD CELL COUNT(AUTO) 3.55 MIL/uL (4.00-5.20); RED CELL DISTRIBUTION WIDTH 16.1 % (11.5-14.5); WHITE BLOOD COUNT (AUTO) 4.2 K/uL (4.5-11.0)
[2023-08-23 22:04] LABS: CALCIUM, TOTAL 8.8 mg/dL (8.8-10.5); CREATININE 1.1 mg/dL (0.60-1.30)
[2023-08-23 22:09] LABS: ALBUMIN 3.1 g/dL (3.4-5.0); BILIRUBIN,TOTAL 0.2 mg/dL (0.1-1.0); TOTAL PROTEIN, SERUM 7.2 g/dL (6.4-8.2)
[2023-08-23 22:16] LABS: TROPONIN I-HIGH SENSITIVITY 67 ng/L (<51)
[2023-08-23] MEDS: MAG HYDROX/ALUMINUM HYD/SIMETH ES 30 ML SUSPENSION UDCUP PO ONE (23:21)
[2023-08-23] MEDS: PHENOBARB/HYOSCY/ATROPINE/SCOP 5 ML UDCUP ELIXIR PO ONE (23:21)
[2023-08-23] MEDS: ONDANSETRON HCL 4 MG TABLET PO ONE (23:22)
[2023-08-23 23:54] VITALS: BP 137/68; PULSE 89; RESP 16; TEMP 98.1
== END 2023-08-24 03:16 | disposition home or self-care (01) ==
LOC: EMS 18:19
DX: F20.0 Paranoid schizophrenia (principal); R11.2 Nausea with vomiting, unspecified; R10.13 Epigastric pain; Z88.0 Allergy status to penicillin; K21.9 Gastro-esophageal reflux disease without esophagitis; I10 Essential (primary) hypertension
CPT/HCPCS: 99284; 80053; 83690; 84484; 85025; 36415; 93005; Q0162

== ENCOUNTER 2023-08-30 10:35 | Emergency (ER) | payer OTHER ==
[~2023-08-30] VITALS: Ht 167.6 cm; Wt 79.7 kg
[2023-08-30 11:07] VITALS: BP 153/63; PULSE 60; RESP 18; TEMP 98.4
[2023-08-30] MEDS: ONDANSETRON HCL 4 MG TABLET PO ONE (12:13)
[2023-08-30] MEDS: ACETAMINOPHEN 500 MG TABLET PO ONE (12:13)
[2023-08-30] MEDS: MAG HYDROX/ALUMINUM HYD/SIMETH ES 30 ML SUSPENSION UDCUP PO ONE (12:13)
[2023-08-30] MEDS: HydrOXYzine HCL 10 MG TABLET PO ONE (12:13)
== END 2023-08-30 13:11 | disposition home or self-care (01) ==
LOC: EMS 10:36
DX: F20.0 Paranoid schizophrenia (principal); R10.13 Epigastric pain; F41.9 Anxiety disorder, unspecified; M19.90 Unspecified osteoarthritis, unspecified site; F32.A Depression, unspecified; I10 Essential (primary) hypertension; E03.9 Hypothyroidism, unspecified; G43.909 Migraine, unspecified, not intractable, without status migrainosus; Z98.51 Tubal ligation status; Z88.0 Allergy status to penicillin; Z88.8 Allergy status to other drugs, medicaments and biological substances
CPT/HCPCS: 99284; Q0162

== ENCOUNTER 2023-09-04 23:59 | Emergency (ER) | payer OTHER ==
[~2023-09-04] VITALS: Ht 167.6 cm; Wt 81.8 kg
[2023-09-05 05:20] VITALS: TEMP 98.7
[2023-09-05 09:27] LABS: HEMATOCRIT 32.2 % (36-46); HEMOGLOBIN 10.3 g/dL (12.0-16.0); MEAN CORPUSCULAR HEMOGLOBIN 27.3 pg (26.0-34.0); MEAN CORPUSCULAR HGB CONC 31.9 G/dL (31.0-37.0); MEAN CORPUSCULAR VOLUME 85 fL (80-100); PLATELET COUNT (AUTO) 311 K/uL (150-450); RED BLOOD CELL COUNT(AUTO) 3.77 MIL/uL (4.00-5.20); RED CELL DISTRIBUTION WIDTH 15.7 % (11.5-14.5)
[2023-09-05 09:31] LABS: BAND NEUTROPHILS % (MANUAL) 0 % (0-5)
[2023-09-05 09:35] LABS: ANION GAP 8 mmol/L (8-16); CALCIUM, TOTAL 8.8 mg/dL (8.8-10.5); CARBON DIOXIDE 27 mmol/L (22-29); CHLORIDE 103 mmol/L (98-107); CREATININE 0.96 mg/dL (0.60-1.30); GLOMERULAR FILTR. RATE CALC > 60 mL/min (>60); GLUCOSE,RANDOM 93 mg/dL (70-110); POTASSIUM 4.1 mmol/L (3.5-5.1); SODIUM SERUM 138 mmol/L (136-145); UREA NITROGEN, BLOOD 13 mg/dL (7-18)
[2023-09-05 09:46] LABS: ALANINE AMINOTRANSFERASE 14 U/L (12-78); ALBUMIN 3.5 g/dL (3.4-5.0); ALKALINE PHOSPHATASE 94 U/L (46-116); ASPARTATE AMINOTRANSFERASE 15 U/L (15-37); BILIRUBIN,TOTAL 0.2 mg/dL (0.1-1.0); HCG,QUANTITATIVE 2 mIU/mL (0-6); LIPASE 29 U/L (16-77); TOTAL PROTEIN, SERUM 7.6 g/dL (6.4-8.2)
[2023-09-05 10:06] LABS: LYMPHOCYTES % (MANUAL) 40 % (22-44); MONOCYTES % (MANUAL) 2 % (2-9); SEGMENTED NEUTROPHILS % 58 % (40-70); TOTAL CELLS COUNTED 100
[2023-09-05 10:07] LABS: WHITE BLOOD COUNT (AUTO) 3.7 K/uL (4.5-11.0)
[2023-09-05 10:45] LABS: APPEARANCE,URINE CLEAR (CLEAR); BILIRUBIN,URINE NEGATIVE (NEGATIVE); COLOR,URINE LIGHT YELLOW (YELLOW); GLUCOSE, URINE (UA) NEGATIVE (NEGATIVE); KETONES,URINE NEGATIVE (NEGATIVE); LEUKOCYTE ESTERASE ,URINE TRACE (NEGATIVE); NITRATE,URINE NEGATIVE (NEGATIVE); OCCULT BLOOD,URINE NEGATIVE (NEGATIVE); PH,URINE 7.5 (5.0-8.0); PROTEIN,URINE NEGATIVE (NEGATIVE); SPECIFIC GRAVITIY, URINE 1.014 (1.003-1.030); UROBILINOGEN,URINE <=1.0 mg/dL (<=1.0)
[2023-09-05 10:52] LABS: RBC,URINE None Seen /HPF (0-2); WBC,URINE 0-2 /HPF (0-5)
[2023-09-05 10:53] LABS: BACTERIA,URINE None Seen /HPF (None Seen); SQUAMOUS EPITHELIAL CELL,UR Few /LPF (None Seen)
[2023-09-05 12:08] VITALS: BP 171/65; PULSE 56; RESP 16
[2023-09-05] MEDS: IBUPROFEN 600 MG TABLET PO STA (12:19)
[2023-09-05] MEDS: ACETAMINOPHEN 325 MG TABLET PO STA (12:25)
[2023-09-05] MEDS: ONDANSETRON HCL 4 MG TABLET PO ONE (12:54)
== END 2023-09-05 14:10 | disposition home or self-care (01) ==
LOC: EMS 09-05 00:01
DX: R30.0 Dysuria (principal); F41.9 Anxiety disorder, unspecified; F32.A Depression, unspecified; M19.90 Unspecified osteoarthritis, unspecified site; I10 Essential (primary) hypertension; E03.9 Hypothyroidism, unspecified; G43.909 Migraine, unspecified, not intractable, without status migrainosus; F20.9 Schizophrenia, unspecified; Z98.51 Tubal ligation status; Z98.890 Other specified postprocedural states; Z88.0 Allergy status to penicillin; Z88.8 Allergy status to other drugs, medicaments and biological substances
CPT/HCPCS: 71045; 80053; 81001; 83690; 84702; 85025; 93005; 99283; Q0162; 36415-L1; 36415-TC

== ENCOUNTER 2023-09-09 09:18 | Emergency (ER) | payer OTHER ==
[~2023-09-09] VITALS: Ht 157.5 cm; Wt 81.8 kg
[2023-09-09 10:40] VITALS: TEMP 98.7
[2023-09-09] MEDS: ONDANSETRON HCL 4 MG TABLET PO ONE (11:42)
[2023-09-09] MEDS ORDERED: TRAZ-252 PO (12:23)
[2023-09-09] MEDS ORDERED: CLOP75TA32 PO (12:23)
[2023-09-09] MEDS ORDERED: SUCR1ORA15 PO (12:23)
[2023-09-09] MEDS ORDERED: ASPI-1451 PO (12:23)
[2023-09-09] MEDS ORDERED: GABA-529 PO (12:23)
[2023-09-09] MEDS ORDERED: DICY20TA95 PO (12:23)
[2023-09-09] MEDS: MAGNESIUM CITRATE [LEMON] 300 ML ORAL SOLUTION PO ONE (12:52)
[2023-09-09] MEDS: PHENOBARB/HYOSCY/ATROPINE/SCOP 5 ML UDCUP ELIXIR PO ONE (13:22)
[2023-09-09] MEDS: FAMOTIDINE 20 MG TABLET PO ONE (13:22)
[2023-09-09 14:03] VITALS: BP 162/68; PULSE 75; RESP 18
[2023-09-09] MEDS: LORazepam 1 MG TABLET PO ONE (14:44)
[2023-09-09] MEDS: MAG HYDROX/ALUMINUM HYD/SIMETH ES 30 ML SUSPENSION UDCUP PO ONE (14:44)
[2023-09-09] MEDS: DICYCLOMINE HCL 10 MG CAPSULE PO ONE (14:44)
== END 2023-09-09 17:29 | disposition home or self-care (01) ==
LOC: EMS 09:18
DX: K11.7 Disturbances of salivary secretion (principal); R10.9 Unspecified abdominal pain; I10 Essential (primary) hypertension; D64.9 Anemia, unspecified; F41.9 Anxiety disorder, unspecified; F32.A Depression, unspecified; K21.9 Gastro-esophageal reflux disease without esophagitis; F20.9 Schizophrenia, unspecified; G43.909 Migraine, unspecified, not intractable, without status migrainosus; I25.2 Old myocardial infarction; Z86.73 Personal history of transient ischemic attack (TIA), and cerebral infarction without residual deficits; Z87.440 Personal history of urinary (tract) infections; Z98.51 Tubal ligation status; Z88.0 Allergy status to penicillin
CPT/HCPCS: 99284; 82962; Q0162

== ENCOUNTER 2023-09-25 09:26 | Emergency (ER) | payer OTHER ==
[~2023-09-25] VITALS: Ht 162.6 cm; Wt 95.4 kg
[~2023-09-25 09:26] MED LIST changes: -ASPI-1444 PO; +ASPI-1451 PO; +CLOP75TA32 PO; +DICY20TA95 PO; +GABA-529 PO; +SUCR1ORA15 PO; +TRAZ-252 PO
[2023-09-25 09:53] VITALS: TEMP 98.5
[2023-09-25] MEDS: KETOROLAC TROMETHAMINE 30 MG/ML VIAL IM ONE (10:08)
[2023-09-25 10:32] LABS: BASOPHILS % (AUTO) 1.2 % (0.0-2.0); EOSINOPHILS % (AUTO) 3.5 % (1.0-6.0); HEMATOCRIT 30.3 % (36-46); HEMOGLOBIN 9.8 g/dL (12.0-16.0); LYMPHOCYTES # (AUTO) 0.8 K/uL (1.0-4.8); LYMPHOCYTES % (AUTO) 24.4 % (22.0-44.0); MEAN CORPUSCULAR HEMOGLOBIN 27.2 pg (26.0-34.0); MEAN CORPUSCULAR HGB CONC 32.3 G/dL (31.0-37.0); MEAN CORPUSCULAR VOLUME 84 fL (80-100); MONOCYTES # (AUTO) 0.3 K/uL (0.1-1.0); MONOCYTES % (AUTO) 7.6 % (2.0-9.0); NEUTROPHILS # (AUTO) 2.1 K/uL (1.8-7.7); NEUTROPHILS % (AUTO) 63.3 % (40.0-70.0); PLATELET COUNT (AUTO) 258 K/uL (150-450); RED BLOOD CELL COUNT(AUTO) 3.59 MIL/uL (4.00-5.20); RED CELL DISTRIBUTION WIDTH 16.5 % (11.5-14.5); WHITE BLOOD COUNT (AUTO) 3.3 K/uL (4.5-11.0)
[2023-09-25 10:42] LABS: CREATININE 1.08 mg/dL (0.60-1.30)
[2023-09-25 10:46] LABS: ALBUMIN 3.3 g/dL (3.4-5.0); BILIRUBIN,TOTAL 0.2 mg/dL (0.1-1.0)
[2023-09-25 10:57] LABS: TROPONIN I-HIGH SENSITIVITY 96 ng/L (<51)
[2023-09-25 11:30] VITALS: BP 155/60; PULSE 55; RESP 18
[2023-09-25] MEDS: ONDANSETRON HCL 4 MG TABLET PO ONE (11:44)
[2023-09-25] MEDS: DiphenhydrAMINE HCL 50 MG CAPSULE PO ONE (12:28)
[2023-09-25 12:29] LABS: APPEARANCE,URINE CLEAR (CLEAR); BILIRUBIN,URINE NEGATIVE (NEGATIVE); COLOR,URINE YELLOW (YELLOW); GLUCOSE, URINE (UA) NEGATIVE (NEGATIVE); KETONES,URINE NEGATIVE (NEGATIVE); LEUKOCYTE ESTERASE ,URINE TRACE (NEGATIVE); NITRATE,URINE NEGATIVE (NEGATIVE); OCCULT BLOOD,URINE NEGATIVE (NEGATIVE); PH,URINE 6.5 (5.0-8.0); PROTEIN,URINE 30-70 mg/dL (NEGATIVE)
[2023-09-25 12:33] LABS: SPECIFIC GRAVITIY, URINE > 1.030 (1.003-1.030)
[2023-09-25 12:45] LABS: BACTERIA,URINE Rare /HPF (None Seen); RBC,URINE None Seen /HPF (0-2); SQUAMOUS EPITHELIAL CELL,UR Few /LPF (None Seen)
== END 2023-09-25 13:59 | disposition home or self-care (01) ==
LOC: EMS 09:26
DX: R10.30 Lower abdominal pain, unspecified (principal); R06.02 Shortness of breath; K21.9 Gastro-esophageal reflux disease without esophagitis; I10 Essential (primary) hypertension; Z88.0 Allergy status to penicillin; Z88.6 Allergy status to analgesic agent
CPT/HCPCS: 99284; 80053; 81001; 83690; 84484; 85025; 36415; 93005; 96372; J1885; Q0162

== ENCOUNTER 2023-09-30 21:13 | Emergency (ER) | payer MEDICARE, OTHER ==
[~2023-09-30] VITALS: Ht 167.6 cm; Wt 76.8 kg
[2023-10-01] MEDS ORDERED: MELO-107 PO (00:57)
[2023-10-01] MEDS: KETOROLAC TROMETHAMINE 30 MG/ML VIAL IM ONE (01:11)
[2023-10-01 03:44] VITALS: BP 140/46; PULSE 60; RESP 18; TEMP 97.8
== END 2023-10-01 04:54 | disposition home or self-care (01) ==
LOC: EMS 21:13
DX: M19.90 Unspecified osteoarthritis, unspecified site (principal); I10 Essential (primary) hypertension; K21.9 Gastro-esophageal reflux disease without esophagitis; Z88.0 Allergy status to penicillin; Z88.8 Allergy status to other drugs, medicaments and biological substances
CPT/HCPCS: 99283; 96372; J1885

== ENCOUNTER 2023-10-01 19:36 | Emergency (ER) | payer MEDICARE, OTHER ==
[~2023-10-01] VITALS: Ht 167.6 cm; Wt 77.3 kg
[~2023-10-01 19:36] MED LIST changes: +MELO-107 PO
[2023-10-01 19:42] VITALS: TEMP 98
[2023-10-01 21:09] LABS: ANION GAP 3 mmol/L (8-16); CALCIUM, TOTAL 8.5 mg/dL (8.8-10.5); CARBON DIOXIDE 29 mmol/L (22-29); CHLORIDE 106 mmol/L (98-107); CREATININE 1.04 mg/dL (0.60-1.30); GLOMERULAR FILTR. RATE CALC > 60 mL/min (>60); GLUCOSE,RANDOM 89 mg/dL (70-110); POTASSIUM 4.7 mmol/L (3.5-5.1); SODIUM SERUM 138 mmol/L (136-145); UREA NITROGEN, BLOOD 17 mg/dL (7-18)
[2023-10-01 21:16] LABS: ALANINE AMINOTRANSFERASE 15 U/L (12-78); ALBUMIN 3.1 g/dL (3.4-5.0); ALKALINE PHOSPHATASE 86 U/L (46-116); ASPARTATE AMINOTRANSFERASE 12 U/L (15-37); BILIRUBIN,TOTAL 0.2 mg/dL (0.1-1.0); LIPASE 30 U/L (16-77); TOTAL PROTEIN, SERUM 6.9 g/dL (6.4-8.2)
[2023-10-01 21:20] LABS: TROPONIN I-HIGH SENSITIVITY 79 ng/L (<51)
[2023-10-01 23:17] LABS: BASOPHILS % (AUTO) 1.6 % (0.0-2.0); EOSINOPHILS % (AUTO) 2.6 % (1.0-6.0); HEMATOCRIT 28.8 % (36-46); HEMOGLOBIN 9.2 g/dL (12.0-16.0); LYMPHOCYTES % (AUTO) 37.5 % (22.0-44.0); MEAN CORPUSCULAR HEMOGLOBIN 27.2 pg (26.0-34.0); MEAN CORPUSCULAR VOLUME 85 fL (80-100); MONOCYTES # (AUTO) 0.2 K/uL (0.1-1.0); MONOCYTES % (AUTO) 8.9 % (2.0-9.0); NEUTROPHILS # (AUTO) 1.4 K/uL (1.8-7.7); NEUTROPHILS % (AUTO) 49.4 % (40.0-70.0); PLATELET COUNT (AUTO) 219 K/uL (150-450); RED BLOOD CELL COUNT(AUTO) 3.39 MIL/uL (4.00-5.20); RED CELL DISTRIBUTION WIDTH 16.3 % (11.5-14.5); WHITE BLOOD COUNT (AUTO) 2.8 K/uL (4.5-11.0)
[2023-10-01 23:30] VITALS: BP 142/73; PULSE 60; RESP 16
[2023-10-01] MEDS: PB/HYOSCY/ATR/SCOP/LIDO/MAALOX 55 ML BOTTLE PO ONE (23:30)
[2023-10-02 00:34] LABS: TROPONIN I-HIGH SENSITIVITY 90 ng/L (<51)
== END 2023-10-02 02:44 | disposition home or self-care (01) ==
LOC: EMS 19:36
DX: K29.70 Gastritis, unspecified, without bleeding (principal); R11.2 Nausea with vomiting, unspecified; Z88.0 Allergy status to penicillin; Z88.8 Allergy status to other drugs, medicaments and biological substances; K21.9 Gastro-esophageal reflux disease without esophagitis; I10 Essential (primary) hypertension
CPT/HCPCS: 80053; 83690; 84484; 85025; 93005; 99284

== ENCOUNTER 2023-10-03 17:43 | Emergency (ER) | payer MEDICARE, OTHER ==
[~2023-10-03] VITALS: Ht 157.5 cm; Wt 75.0 kg
[~2023-10-03 17:43] MED LIST changes: +SUCR1ORA PO; -SUCR1ORA15 PO
[2023-10-03 17:58] VITALS: BP 168/72; PULSE 58; RESP 18; TEMP 98.3
== END 2023-10-03 21:21 | disposition left against medical advice (07) ==
LOC: EMS 17:43
DX: R07.9 Chest pain, unspecified (principal); Z53.21 Procedure and treatment not carried out due to patient leaving prior to being seen by health care provider
CPT/HCPCS: 99283

== ENCOUNTER 2023-10-09 23:46 | Emergency (ER) | payer MEDICARE, OTHER ==
[~2023-10-09] VITALS: Ht 167.6 cm; Wt 104.0 kg
[2023-10-09 23:51] VITALS: TEMP 98.7
[2023-10-10] MEDS: MAG HYDROX/ALUMINUM HYD/SIMETH ES 30 ML SUSPENSION UDCUP PO ONE (00:35)
[2023-10-10] MEDS: KETOROLAC TROMETHAMINE 60 MG/2 ML VIAL IM ONE (00:35)
[2023-10-10 00:40] LABS: BASOPHILS % (AUTO) 1.1 % (0.0-2.0); EOSINOPHILS % (AUTO) 4.5 % (1.0-6.0); HEMATOCRIT 26.8 % (36-46); HEMOGLOBIN 8.5 g/dL (12.0-16.0); LYMPHOCYTES # (AUTO) 1.4 K/uL (1.0-4.8); MEAN CORPUSCULAR HEMOGLOBIN 27.2 pg (26.0-34.0); MEAN CORPUSCULAR HGB CONC 31.9 G/dL (31.0-37.0); MEAN CORPUSCULAR VOLUME 85 fL (80-100); MONOCYTES # (AUTO) 0.3 K/uL (0.1-1.0); MONOCYTES % (AUTO) 10.8 % (2.0-9.0); NEUTROPHILS # (AUTO) 1.3 K/uL (1.8-7.7); NEUTROPHILS % (AUTO) 41.6 % (40.0-70.0); PLATELET COUNT (AUTO) 191 K/uL (150-450); RED BLOOD CELL COUNT(AUTO) 3.14 MIL/uL (4.00-5.20); RED CELL DISTRIBUTION WIDTH 16.6 % (11.5-14.5); WHITE BLOOD COUNT (AUTO) 3.2 K/uL (4.5-11.0)
[2023-10-10 00:49] LABS: ANION GAP 5 mmol/L (8-16); CALCIUM, TOTAL 8.6 mg/dL (8.8-10.5); CARBON DIOXIDE 30 mmol/L (22-29); CHLORIDE 105 mmol/L (98-107); CREATININE 0.95 mg/dL (0.60-1.30); GLOMERULAR FILTR. RATE CALC > 60 mL/min (>60); GLUCOSE,RANDOM 88 mg/dL (70-110); POTASSIUM 4.4 mmol/L (3.5-5.1); SODIUM SERUM 140 mmol/L (136-145); UREA NITROGEN, BLOOD 14 mg/dL (7-18)
[2023-10-10 01:09] LABS: TROPONIN I-HIGH SENSITIVITY 76 ng/L (<51)
[2023-10-10 06:59] VITALS: BP 149/68; PULSE 68; RESP 16
== END 2023-10-10 09:11 | disposition home or self-care (01) ==
LOC: EMS 23:46
DX: K21.9 Gastro-esophageal reflux disease without esophagitis (principal); R79.89 Other specified abnormal findings of blood chemistry; R11.2 Nausea with vomiting, unspecified; R07.89 Other chest pain; F41.9 Anxiety disorder, unspecified; M19.90 Unspecified osteoarthritis, unspecified site; F32.A Depression, unspecified; I10 Essential (primary) hypertension; E03.9 Hypothyroidism, unspecified; G43.909 Migraine, unspecified, not intractable, without status migrainosus; F20.9 Schizophrenia, unspecified; Z98.51 Tubal ligation status; Z88.0 Allergy status to penicillin; Z91.148 Patient's other noncompliance with medication regimen for other reason; Z86.73 Personal history of transient ischemic attack (TIA), and cerebral infarction without residual deficits
CPT/HCPCS: 99284; 80048; 84484; 85025; 36415; 93005; 96372; J1885

== ENCOUNTER 2023-10-13 06:49 | Emergency (ER) | payer MEDICARE, OTHER ==
[~2023-10-13] VITALS: Ht 167.6 cm; Wt 75.0 kg
[2023-10-13 07:20] VITALS: BP 161/65; PULSE 56; RESP 16; TEMP 99.2
[2023-10-13] MEDS: KETOROLAC TROMETHAMINE 30 MG/ML VIAL IM ONE (07:50)
== END 2023-10-13 10:45 | disposition home or self-care (01) ==
LOC: EMS 06:51
DX: M25.512 Pain in left shoulder (principal); I10 Essential (primary) hypertension; D64.9 Anemia, unspecified; F41.9 Anxiety disorder, unspecified; F20.9 Schizophrenia, unspecified; K21.9 Gastro-esophageal reflux disease without esophagitis; F32.A Depression, unspecified; I25.10 Atherosclerotic heart disease of native coronary artery without angina pectoris; I25.2 Old myocardial infarction; G43.909 Migraine, unspecified, not intractable, without status migrainosus; Z88.0 Allergy status to penicillin; Z87.440 Personal history of urinary (tract) infections; Z98.51 Tubal ligation status
CPT/HCPCS: 99283; 96372; J1885

== ENCOUNTER 2023-10-17 17:22 | Emergency (ER) | payer MEDICARE, OTHER ==
[2023-10-17 19:25] LABS: EOSINOPHILS % (AUTO) 1.8 % (1.0-6.0); HEMOGLOBIN 9.2 g/dL (12.0-16.0); LYMPHOCYTES % (AUTO) 25.9 % (22.0-44.0); MEAN CORPUSCULAR HEMOGLOBIN 26.7 pg (26.0-34.0); MEAN CORPUSCULAR HGB CONC 31.7 G/dL (31.0-37.0); MEAN CORPUSCULAR VOLUME 84 fL (80-100); MONOCYTES # (AUTO) 0.4 K/uL (0.1-1.0); MONOCYTES % (AUTO) 9.2 % (2.0-9.0); NEUTROPHILS # (AUTO) 2.4 K/uL (1.8-7.7); NEUTROPHILS % (AUTO) 62.1 % (40.0-70.0); PLATELET COUNT (AUTO) 248 K/uL (150-450); RED BLOOD CELL COUNT(AUTO) 3.45 MIL/uL (4.00-5.20); RED CELL DISTRIBUTION WIDTH 16.9 % (11.5-14.5); WHITE BLOOD COUNT (AUTO) 3.8 K/uL (4.5-11.0)
[2023-10-17 19:35] LABS: ANION GAP 8 mmol/L (8-16); CARBON DIOXIDE 30 mmol/L (22-29); CHLORIDE 103 mmol/L (98-107); GLOMERULAR FILTR. RATE CALC > 60 mL/min (>60); GLUCOSE,RANDOM 90 mg/dL (70-110); POTASSIUM 3.9 mmol/L (3.5-5.1); SODIUM SERUM 141 mmol/L (136-145); UREA NITROGEN, BLOOD 12 mg/dL (7-18)
[2023-10-17 19:41] LABS: ALANINE AMINOTRANSFERASE 16 U/L (12-78); ALBUMIN 3.3 g/dL (3.4-5.0); ALKALINE PHOSPHATASE 88 U/L (46-116); ASPARTATE AMINOTRANSFERASE 14 U/L (15-37); BILIRUBIN,TOTAL 0.2 mg/dL (0.1-1.0); LIPASE 23 U/L (16-77)
[2023-10-17 19:49] LABS: TROPONIN I-HIGH SENSITIVITY 97 ng/L (<51)
[2023-10-17] MEDS: TraMADol HCL 50 MG TABLET PO ONE (20:23)
[2023-10-17] MEDS: HYDROCODONE/ACETAMINOPHEN 5-325 MG TABLET PO ONE (20:24)
[2023-10-17] MEDS: ACETAMINOPHEN 325 MG TABLET PO ONE (20:42)
[2023-10-17] MEDS: PB/HYOSCY/ATR/SCOP/LIDO/MAALOX 55 ML BOTTLE PO ONE (21:53)
[2023-10-17] MEDS: KETOROLAC TROMETHAMINE 30 MG/ML VIAL IM ONE (22:34)
[2023-10-17 22:49] VITALS: BP 150/71; PULSE 82; RESP 18; TEMP 97.7
== END 2023-10-18 00:30 | disposition home or self-care (01) ==
LOC: EMS 17:24
DX: K29.70 Gastritis, unspecified, without bleeding (principal); K44.9 Diaphragmatic hernia without obstruction or gangrene; R51.9 Headache, unspecified; K21.9 Gastro-esophageal reflux disease without esophagitis; E11.9 Type 2 diabetes mellitus without complications; I10 Essential (primary) hypertension; Z88.0 Allergy status to penicillin; Z88.8 Allergy status to other drugs, medicaments and biological substances
CPT/HCPCS: 99284; 80053; 83690; 84484; 85025; 36415; 93005; 96372; J1885

== ENCOUNTER 2023-10-27 03:36 | Emergency (ER) | payer MEDICARE, OTHER ==
[~2023-10-27] VITALS: Ht 167.6 cm; Wt 93.1 kg
[2023-10-27 03:57] VITALS: TEMP 98.2
[2023-10-27 05:55] LABS: BASOPHILS % (AUTO) 1.4 % (0.0-2.0); EOSINOPHILS % (AUTO) 4.2 % (1.0-6.0); HEMATOCRIT 28.5 % (36-46); HEMOGLOBIN 8.9 g/dL (12.0-16.0); LYMPHOCYTES # (AUTO) 0.9 K/uL (1.0-4.8); LYMPHOCYTES % (AUTO) 40.8 % (22.0-44.0); MEAN CORPUSCULAR HEMOGLOBIN 26.5 pg (26.0-34.0); MEAN CORPUSCULAR HGB CONC 31.2 G/dL (31.0-37.0); MEAN CORPUSCULAR VOLUME 85 fL (80-100); MONOCYTES # (AUTO) 0.2 K/uL (0.1-1.0); NEUTROPHILS % (AUTO) 43.6 % (40.0-70.0); PLATELET COUNT (AUTO) 262 K/uL (150-450); RED BLOOD CELL COUNT(AUTO) 3.35 MIL/uL (4.00-5.20); RED CELL DISTRIBUTION WIDTH 17.3 % (11.5-14.5); WHITE BLOOD COUNT (AUTO) 2.3 K/uL (4.5-11.0)
[2023-10-27 05:59] VITALS: BP 151/66; PULSE 57; RESP 14
[2023-10-27 06:01] LABS: ANION GAP 6 mmol/L (8-16); CALCIUM, TOTAL 8.5 mg/dL (8.8-10.5); CARBON DIOXIDE 29 mmol/L (22-29); CHLORIDE 104 mmol/L (98-107); CREATININE 0.97 mg/dL (0.60-1.30); GLOMERULAR FILTR. RATE CALC > 60 mL/min (>60); GLUCOSE,RANDOM 99 mg/dL (70-110); SODIUM SERUM 139 mmol/L (136-145); UREA NITROGEN, BLOOD 13 mg/dL (7-18)
[2023-10-27 06:13] LABS: B-TYPE NATRIURETIC PEPTIDE 24 pg/mL (0-100)
[2023-10-27 06:21] LABS: TROPONIN I-HIGH SENSITIVITY 97 ng/L (<51)
[2023-10-27 06:26] LABS: CREATINE KINASE, TOTAL ONLY 99 U/L (26-192)
[2023-10-27 08:08] LABS: TROPONIN I-HIGH SENSITIVITY 72 ng/L (<51)
[2023-10-27] MEDS: LORazepam 1 MG TABLET PO ONE (09:12)
[2023-10-27] MEDS: FAMOTIDINE 20 MG TABLET PO ONE (09:14)
== END 2023-10-27 10:15 | disposition home or self-care (01) ==
LOC: EMS 03:37
DX: K21.9 Gastro-esophageal reflux disease without esophagitis (principal); F41.9 Anxiety disorder, unspecified; M19.90 Unspecified osteoarthritis, unspecified site; F32.A Depression, unspecified; I10 Essential (primary) hypertension; E03.9 Hypothyroidism, unspecified; G43.909 Migraine, unspecified, not intractable, without status migrainosus; F20.9 Schizophrenia, unspecified; Z98.51 Tubal ligation status; Z98.890 Other specified postprocedural states; Z88.0 Allergy status to penicillin; Z88.8 Allergy status to other drugs, medicaments and biological substances
CPT/HCPCS: 71045; 80048; 82550; 83880; 84484; 85025; 93005; 99285; 36415-L1; 36415-TC

== ENCOUNTER 2023-11-21 02:23 | Emergency (ER) | payer MEDICARE, OTHER ==
[~2023-11-21] VITALS: Ht 167.6 cm; Wt 96.0 kg
[2023-11-21 02:37] VITALS: TEMP 98
[2023-11-21 03:02] LABS: BASOPHILS % (AUTO) 1.3 % (0.0-2.0); EOSINOPHILS % (AUTO) 3.9 % (1.0-6.0); HEMATOCRIT 27.9 % (36-46); HEMOGLOBIN 8.7 g/dL (12.0-16.0); LYMPHOCYTES % (AUTO) 34.3 % (22.0-44.0); MEAN CORPUSCULAR HEMOGLOBIN 26.6 pg (26.0-34.0); MEAN CORPUSCULAR HGB CONC 31.3 G/dL (31.0-37.0); MEAN CORPUSCULAR VOLUME 85 fL (80-100); MONOCYTES # (AUTO) 0.4 K/uL (0.1-1.0); MONOCYTES % (AUTO) 12.7 % (2.0-9.0); NEUTROPHILS # (AUTO) 1.4 K/uL (1.8-7.7); NEUTROPHILS % (AUTO) 47.8 % (40.0-70.0); PLATELET COUNT (AUTO) 199 K/uL (150-450); RED BLOOD CELL COUNT(AUTO) 3.29 MIL/uL (4.00-5.20); RED CELL DISTRIBUTION WIDTH 19.4 % (11.5-14.5); WHITE BLOOD COUNT (AUTO) 2.8 K/uL (4.5-11.0)
[2023-11-21 03:05] LABS: ANION GAP 4 mmol/L (8-16); CALCIUM, TOTAL 7.9 mg/dL (8.8-10.5); CARBON DIOXIDE 31 mmol/L (22-29); CHLORIDE 105 mmol/L (98-107); CREATININE 1.04 mg/dL (0.60-1.30); GLOMERULAR FILTR. RATE CALC > 60 mL/min (>60); GLUCOSE,RANDOM 90 mg/dL (70-110); POTASSIUM 3.7 mmol/L (3.5-5.1); SODIUM SERUM 140 mmol/L (136-145); UREA NITROGEN, BLOOD 19 mg/dL (7-18)
[2023-11-21 03:07] LABS: LIPASE 30 U/L (16-77)
[2023-11-21 03:25] LABS: TROPONIN I-HIGH SENSITIVITY 95 ng/L (<51)
[2023-11-21 04:50] VITALS: BP 163/62; PULSE 60; RESP 18
[2023-11-21 05:21] LABS: TROPONIN I-HIGH SENSITIVITY 101 ng/L (<51)
[2023-11-21 05:33] LABS: APPEARANCE,URINE CLEAR (CLEAR); BILIRUBIN,URINE NEGATIVE (NEGATIVE); COLOR,URINE LIGHT YELLOW (YELLOW); GLUCOSE, URINE (UA) NEGATIVE (NEGATIVE); KETONES,URINE NEGATIVE (NEGATIVE); NITRATE,URINE NEGATIVE (NEGATIVE); OCCULT BLOOD,URINE NEGATIVE (NEGATIVE); PROTEIN,URINE NEGATIVE (NEGATIVE); SPECIFIC GRAVITIY, URINE 1.025 (1.003-1.030); UROBILINOGEN,URINE <=1.0 mg/dL (<=1.0)
[2023-11-21 05:34] LABS: LEUKOCYTE ESTERASE ,URINE NEGATIVE (NEGATIVE)
== END 2023-11-21 07:24 | disposition home or self-care (01) ==
LOC: EMS 02:23
DX: R10.9 Unspecified abdominal pain (principal); K21.9 Gastro-esophageal reflux disease without esophagitis; I10 Essential (primary) hypertension; Z88.0 Allergy status to penicillin; Z88.6 Allergy status to analgesic agent
CPT/HCPCS: 80048; 81003; 83690; 84484; 85025; 93005; 99284

== ENCOUNTER 2023-11-24 08:20 | Emergency (ER) | payer MEDICARE, OTHER ==
[~2023-11-24] VITALS: Ht 167.6 cm; Wt 72.7 kg
[2023-11-24 08:26] VITALS: TEMP 97.7
[2023-11-24 08:53] LABS: BASOPHILS % (AUTO) 1.1 % (0.0-2.0); HEMATOCRIT 33.4 % (36-46); HEMOGLOBIN 10.5 g/dL (12.0-16.0); LYMPHOCYTES # (AUTO) 0.8 K/uL (1.0-4.8); LYMPHOCYTES % (AUTO) 32.4 % (22.0-44.0); MEAN CORPUSCULAR HEMOGLOBIN 26.8 pg (26.0-34.0); MEAN CORPUSCULAR HGB CONC 31.4 G/dL (31.0-37.0); MEAN CORPUSCULAR VOLUME 86 fL (80-100); MONOCYTES # (AUTO) 0.2 K/uL (0.1-1.0); MONOCYTES % (AUTO) 9.2 % (2.0-9.0); NEUTROPHILS # (AUTO) 1.3 K/uL (1.8-7.7); NEUTROPHILS % (AUTO) 52.3 % (40.0-70.0); PLATELET COUNT (AUTO) 233 K/uL (150-450); RED BLOOD CELL COUNT(AUTO) 3.91 MIL/uL (4.00-5.20); WHITE BLOOD COUNT (AUTO) 2.6 K/uL (4.5-11.0)
[2023-11-24 09:01] LABS: ANION GAP 8 mmol/L (8-16); CALCIUM, TOTAL 8.5 mg/dL (8.8-10.5); CARBON DIOXIDE 26 mmol/L (22-29); CHLORIDE 105 mmol/L (98-107); CREATININE 1.02 mg/dL (0.60-1.30); GLOMERULAR FILTR. RATE CALC > 60 mL/min (>60); GLUCOSE,RANDOM 93 mg/dL (70-110); POTASSIUM 3.9 mmol/L (3.5-5.1); SODIUM SERUM 139 mmol/L (136-145); UREA NITROGEN, BLOOD 9 mg/dL (7-18)
[2023-11-24 09:08] LABS: ALANINE AMINOTRANSFERASE 18 U/L (12-78); ALBUMIN 3.6 g/dL (3.4-5.0); ALKALINE PHOSPHATASE 100 U/L (46-116); ASPARTATE AMINOTRANSFERASE 16 U/L (15-37); BILIRUBIN,TOTAL 0.2 mg/dL (0.1-1.0); LIPASE 25 U/L (16-77); TOTAL PROTEIN, SERUM 7.5 g/dL (6.4-8.2)
[2023-11-24] MEDS: ACETAMINOPHEN 500 MG TABLET PO ONE (09:18)
[2023-11-24] MEDS: MAG HYDROX/ALUMINUM HYD/SIMETH 30 ML SUSPENSION UDCUP PO ONE (09:18)
[2023-11-24] MEDS: FAMOTIDINE 20 MG TABLET PO ONE (09:18)
[2023-11-24 11:00] LABS: APPEARANCE,URINE CLEAR (CLEAR); BILIRUBIN,URINE NEGATIVE (NEGATIVE); COLOR,URINE LIGHT YELLOW (YELLOW); GLUCOSE, URINE (UA) NEGATIVE (NEGATIVE); KETONES,URINE NEGATIVE (NEGATIVE); LEUKOCYTE ESTERASE ,URINE NEGATIVE (NEGATIVE); NITRATE,URINE NEGATIVE (NEGATIVE); OCCULT BLOOD,URINE NEGATIVE (NEGATIVE); PH,URINE 6.5 (5.0-8.0); PROTEIN,URINE NEGATIVE (NEGATIVE); SPECIFIC GRAVITIY, URINE 1.014 (1.003-1.030); UROBILINOGEN,URINE <=1.0 mg/dL (<=1.0)
[2023-11-24] MEDS ORDERED: ACET-3385 PO (11:10)
[2023-11-24 11:15] VITALS: BP 146/85; PULSE 84; RESP 18
== END 2023-11-24 11:42 | disposition home or self-care (01) ==
LOC: EMS 08:22
DX: M79.10 Myalgia, unspecified site (principal); R11.0 Nausea; R35.0 Frequency of micturition; K21.9 Gastro-esophageal reflux disease without esophagitis; I10 Essential (primary) hypertension; Z88.0 Allergy status to penicillin; Z88.8 Allergy status to other drugs, medicaments and biological substances
CPT/HCPCS: 80048; 80076; 81003; 83690; 85025; 99284

== ENCOUNTER 2023-12-02 06:35 | Emergency (ER) | payer MEDICARE, OTHER ==
[~2023-12-02] VITALS: Ht 170.2 cm; Wt 90.0 kg
[~2023-12-02 06:35] MED LIST changes: -DICL100G60 TP; -DICY20TA95 PO; -DOCU100C33 PO; -FAMO40TA7 PO; -MELO-107 PO; +METO5TAB87 PO; +PANT-31 PO; -PANT20TA18 PO; -SUCR1ORA PO
[2023-12-02 06:51] VITALS: BP 120/68; PULSE 88; RESP 16; TEMP 98.4
[2023-12-02] MEDS ORDERED: ACET-3385 PO (06:59)
[2023-12-02] MEDS: ACETAMINOPHEN 500 MG TABLET PO ONE (07:16)
[2023-12-02] MEDS: MAG HYDROX/ALUMINUM HYD/SIMETH 30 ML SUSPENSION UDCUP PO ONE (07:17)
[2023-12-02] MEDS: FAMOTIDINE 20 MG TABLET PO ONE (07:17)
== END 2023-12-02 07:45 | disposition home or self-care (01) ==
LOC: EMS 06:36
DX: R52 Pain, unspecified (principal); F41.9 Anxiety disorder, unspecified; M19.90 Unspecified osteoarthritis, unspecified site; F32.A Depression, unspecified; I10 Essential (primary) hypertension; E03.9 Hypothyroidism, unspecified; G43.909 Migraine, unspecified, not intractable, without status migrainosus; F20.9 Schizophrenia, unspecified; Z76.0 Encounter for issue of repeat prescription; Z98.51 Tubal ligation status; Z98.890 Other specified postprocedural states; Z88.0 Allergy status to penicillin; Z88.8 Allergy status to other drugs, medicaments and biological substances
CPT/HCPCS: 99284; Z7502; Z7610

== ENCOUNTER 2023-12-17 04:18 | Emergency (ER) | payer MEDICARE, OTHER ==
[~2023-12-17] VITALS: Ht 170.2 cm; Wt 79.8 kg
[~2023-12-17 04:18] MED LIST changes: +ACET-3385 PO
[2023-12-17 05:35] LABS: BASOPHILS % (AUTO) 0.6 % (0.0-2.0); EOSINOPHILS % (AUTO) 2.5 % (1.0-6.0); HEMATOCRIT 30.8 % (36-46); HEMOGLOBIN 9.9 g/dL (12.0-16.0); LYMPHOCYTES # (AUTO) 1.2 K/uL (1.0-4.8); LYMPHOCYTES % (AUTO) 32.3 % (22.0-44.0); MEAN CORPUSCULAR HEMOGLOBIN 27.8 pg (26.0-34.0); MEAN CORPUSCULAR VOLUME 87 fL (80-100); MONOCYTES # (AUTO) 0.4 K/uL (0.1-1.0); MONOCYTES % (AUTO) 9.9 % (2.0-9.0); NEUTROPHILS % (AUTO) 54.7 % (40.0-70.0); PLATELET COUNT (AUTO) 208 K/uL (150-450); RED BLOOD CELL COUNT(AUTO) 3.54 MIL/uL (4.00-5.20); RED CELL DISTRIBUTION WIDTH 18.1 % (11.5-14.5); WHITE BLOOD COUNT (AUTO) 3.6 K/uL (4.5-11.0)
[2023-12-17 05:46] LABS: CALCIUM, TOTAL 8.6 mg/dL (8.8-10.5); CREATININE 1.14 mg/dL (0.60-1.30); POTASSIUM 3.9 mmol/L (3.5-5.1)
[2023-12-17 07:05] LABS: APPEARANCE,URINE CLEAR (CLEAR); BILIRUBIN,URINE NEGATIVE (NEGATIVE); COLOR,URINE LIGHT YELLOW (YELLOW); GLUCOSE, URINE (UA) NEGATIVE (NEGATIVE); KETONES,URINE NEGATIVE (NEGATIVE); LEUKOCYTE ESTERASE ,URINE SMALL (NEGATIVE); NITRATE,URINE NEGATIVE (NEGATIVE); OCCULT BLOOD,URINE NEGATIVE (NEGATIVE); PH,URINE 7.5 (5.0-8.0); PROTEIN,URINE NEGATIVE (NEGATIVE); SPECIFIC GRAVITIY, URINE 1.014 (1.003-1.030); UROBILINOGEN,URINE <=1.0 mg/dL (<=1.0)
[2023-12-17 07:21] LABS: BACTERIA,URINE None Seen /HPF (None Seen); RBC,URINE None Seen /HPF (0-2); SQUAMOUS EPITHELIAL CELL,UR Rare /LPF (None Seen)
[2023-12-17] MEDS: MAG HYDROX/ALUMINUM HYD/SIMETH ES 30 ML SUSPENSION UDCUP PO ONE (07:41)
[2023-12-17 08:00] VITALS: BP 142/91; PULSE 61; RESP 16; TEMP 97.8; O2SAT 98
== END 2023-12-17 08:30 | disposition home or self-care (01) ==
LOC: EMS 04:19
DX: R10.13 Epigastric pain (principal); I10 Essential (primary) hypertension; F41.9 Anxiety disorder, unspecified; F32.A Depression, unspecified; F20.9 Schizophrenia, unspecified; K21.9 Gastro-esophageal reflux disease without esophagitis; G43.909 Migraine, unspecified, not intractable, without status migrainosus; I25.2 Old myocardial infarction; Z86.73 Personal history of transient ischemic attack (TIA), and cerebral infarction without residual deficits; Z87.440 Personal history of urinary (tract) infections; Z98.51 Tubal ligation status; Z88.0 Allergy status to penicillin
CPT/HCPCS: 74018; 80048; 81001; 85025; 99284; 36415-L1; 36415-TC

== ENCOUNTER 2023-12-17 09:48 | Emergency (ER) | payer MEDICARE, OTHER ==
[~2023-12-17] VITALS: Ht 165.1 cm; Wt 65.9 kg
[2023-12-17 09:59] VITALS: TEMP 97.6
[2023-12-17] MEDS ORDERED: LOSARTAN POTASSIUM 50 MG TABLET PO ONE (12:30)
[2023-12-17 12:43] VITALS: BP 157/85; PULSE 68; RESP 19; O2SAT 98
[2023-12-17] MEDS: KETOROLAC TROMETHAMINE 30 MG/ML VIAL IM ONE (12:52)
[2023-12-17] MEDS: AmLODIPine BESYLATE 5 MG TABLET PO ONE (12:52)
== END 2023-12-17 13:03 | disposition home or self-care (01) ==
LOC: EMS 09:48
DX: I10 Essential (primary) hypertension (principal); M79.605 Pain in left leg; M79.604 Pain in right leg; F41.9 Anxiety disorder, unspecified; F32.A Depression, unspecified; F20.9 Schizophrenia, unspecified; K21.9 Gastro-esophageal reflux disease without esophagitis; G43.909 Migraine, unspecified, not intractable, without status migrainosus; I25.2 Old myocardial infarction; K76.9 Liver disease, unspecified; Z86.73 Personal history of transient ischemic attack (TIA), and cerebral infarction without residual deficits; Z87.440 Personal history of urinary (tract) infections; Z98.51 Tubal ligation status; Z88.0 Allergy status to penicillin
CPT/HCPCS: 99283; 96372; J1885

== ENCOUNTER 2023-12-19 02:42 | Emergency (ER) | payer MEDICARE, OTHER ==
[~2023-12-19 02:42] MED LIST changes: -ACET-66 PO
[2023-12-19] MEDS: LOSARTAN POTASSIUM 25 MG TABLET PO ONE (06:50)
[2023-12-19] MEDS: ONDANSETRON 4 MG TABLET PO ONE (08:25)
[2023-12-19] MEDS: DimenhyDRINATE 50 MG TABLET PO ONE (09:08)
[2023-12-19 09:40] VITALS: BP 159/61; RESP 18
== END 2023-12-19 10:08 | disposition home or self-care (01) ==
LOC: EMS 02:42
DX: R10.84 Generalized abdominal pain (principal); F41.9 Anxiety disorder, unspecified; M19.90 Unspecified osteoarthritis, unspecified site; F32.A Depression, unspecified; I10 Essential (primary) hypertension; E78.00 Pure hypercholesterolemia, unspecified; G43.909 Migraine, unspecified, not intractable, without status migrainosus; F20.9 Schizophrenia, unspecified; Z98.51 Tubal ligation status; Z98.890 Other specified postprocedural states; Z88.0 Allergy status to penicillin; Z88.8 Allergy status to other drugs, medicaments and biological substances
CPT/HCPCS: 99284; Q0162

== ENCOUNTER 2024-01-17 13:18 | Emergency (ER) | payer MEDICARE, OTHER ==
[~2024-01-17] VITALS: Ht 160 cm; Wt 75.0 kg
[2024-01-17 13:38] VITALS: TEMP 97.6
[2024-01-17 14:24] LABS: BASOPHILS % (AUTO) 1.4 % (0.0-2.0); EOSINOPHILS % (AUTO) 2.9 % (1.0-6.0); HEMATOCRIT 29.5 % (36-46); HEMOGLOBIN 9.5 g/dL (12.0-16.0); LYMPHOCYTES % (AUTO) 39.8 % (22.0-44.0); MEAN CORPUSCULAR HEMOGLOBIN 27.8 pg (26.0-34.0); MEAN CORPUSCULAR HGB CONC 32.3 G/dL (31.0-37.0); MEAN CORPUSCULAR VOLUME 86 fL (80-100); MONOCYTES # (AUTO) 0.3 K/uL (0.1-1.0); MONOCYTES % (AUTO) 11.9 % (2.0-9.0); NEUTROPHILS # (AUTO) 1.1 K/uL (1.8-7.7); PLATELET COUNT (AUTO) 251 K/uL (150-450); RED BLOOD CELL COUNT(AUTO) 3.43 MIL/uL (4.00-5.20); RED CELL DISTRIBUTION WIDTH 18.1 % (11.5-14.5); WHITE BLOOD COUNT (AUTO) 2.5 K/uL (4.5-11.0)
[2024-01-17 14:34] LABS: RBC MORPHOLOGY COMMENT ABNORMAL RBC MORPH
[2024-01-17] MEDS: MAG HYDROX/ALUMINUM HYD/SIMETH ES 30 ML SUSPENSION UDCUP PO ONE (14:50)
[2024-01-17 15:12] LABS: ANION GAP 8 mmol/L (8-16); CALCIUM, TOTAL 8.3 mg/dL (8.8-10.5); CARBON DIOXIDE 29 mmol/L (22-29); CHLORIDE 100 mmol/L (98-107); CREATININE 1.06 mg/dL (0.60-1.30); GLOMERULAR FILTR. RATE CALC > 60 mL/min (>60); GLUCOSE,RANDOM 87 mg/dL (70-110); POTASSIUM 4.1 mmol/L (3.5-5.1); SODIUM SERUM 137 mmol/L (136-145); UREA NITROGEN, BLOOD 17 mg/dL (7-18)
[2024-01-17 15:15] LABS: ALANINE AMINOTRANSFERASE 25 U/L (12-78); ALBUMIN 3.1 g/dL (3.4-5.0); ALKALINE PHOSPHATASE 94 U/L (46-116); ASPARTATE AMINOTRANSFERASE 17 U/L (15-37); BILIRUBIN,TOTAL 0.1 mg/dL (0.1-1.0); LIPASE 30 U/L (16-77); TOTAL PROTEIN, SERUM 6.8 g/dL (6.4-8.2)
[2024-01-17 16:15] LABS: APPEARANCE,URINE CLEAR (CLEAR); BILIRUBIN,URINE NEGATIVE (NEGATIVE); COLOR,URINE LIGHT YELLOW (YELLOW); GLUCOSE, URINE (UA) NEGATIVE (NEGATIVE); KETONES,URINE NEGATIVE (NEGATIVE); LEUKOCYTE ESTERASE ,URINE SMALL (NEGATIVE); NITRATE,URINE NEGATIVE (NEGATIVE); OCCULT BLOOD,URINE NEGATIVE (NEGATIVE); PROTEIN,URINE NEGATIVE (NEGATIVE); SPECIFIC GRAVITIY, URINE 1.012 (1.003-1.030); UROBILINOGEN,URINE <=1.0 mg/dL (<=1.0)
[2024-01-17 16:39] LABS: BACTERIA,URINE Few /HPF (None Seen); RBC,URINE 0-2 /HPF (0-2); SQUAMOUS EPITHELIAL CELL,UR Rare /LPF (None Seen)
[2024-01-17] MEDS: LIDOCAINE 5% TRANSDERMAL PATCH TD ONE (17:22)
[2024-01-17 17:30] VITALS: BP 132/66; PULSE 61; RESP 20; O2SAT 100
== END 2024-01-17 18:01 | disposition home or self-care (01) ==
LOC: EMS 13:20
DX: R10.9 Unspecified abdominal pain (principal); R11.0 Nausea; M25.569 Pain in unspecified knee; K21.9 Gastro-esophageal reflux disease without esophagitis; I10 Essential (primary) hypertension; Z88.0 Allergy status to penicillin; Z88.8 Allergy status to other drugs, medicaments and biological substances
CPT/HCPCS: 80048; 80076; 81001; 83690; 85025; 93005; 99284

== ENCOUNTER 2025-01-20 08:25 | Inpatient (IN) | payer OTHER ==
[~2025-01-20] VITALS: Ht 167.6 cm; Wt 107.9 kg
[~2025-01-20 08:25] MED LIST changes: +DULO20CA23 PO; -DULO20CA71 PO
[2025-01-20 08:59] LABS: PLATELET COUNT (AUTO) 214 K/uL (150-450); RED BLOOD CELL COUNT(AUTO) 3.87 MIL/uL (4.00-5.20); RED CELL DISTRIBUTION WIDTH 16.4 % (11.5-14.5); WHITE BLOOD COUNT (AUTO) 4.3 K/uL (4.5-11.0)
[2025-01-20 09:01] LABS: CALCIUM, TOTAL 8.5 mg/dL (8.8-10.5); CREATININE 0.93 mg/dL (0.60-1.30); GLOMERULAR FILTR. RATE CALC > 60 mL/min (>60); GLUCOSE,RANDOM 118 mg/dL (70-110); SODIUM SERUM 140 mmol/L (136-145); UREA NITROGEN, BLOOD 9 mg/dL (7-18)
[2025-01-20 09:08] LABS: ASPARTATE AMINOTRANSFERASE 22.0 U/L (15-37); TOTAL PROTEIN, SERUM 7.1 g/dL (6.4-8.2)
[2025-01-20 09:15] LABS: TROPONIN I-HIGH SENSITIVITY 354 ng/L (<51)
[2025-01-20] MEDS: ASPIRIN 81 MG CHEWABLE TABLET PO ONE (10:28)
[2025-01-20 10:35] LABS: APPEARANCE,URINE CLEAR (CLEAR); GLUCOSE, URINE (UA) NEGATIVE (NEGATIVE); LEUKOCYTE ESTERASE ,URINE NEGATIVE (NEGATIVE); NITRATE,URINE NEGATIVE (NEGATIVE); OCCULT BLOOD,URINE NEGATIVE (NEGATIVE); SPECIFIC GRAVITIY, URINE 1.019 (1.003-1.030)
[2025-01-20] MEDS ORDERED: [UNRECOGNIZED DRUG - CODE] PO (11:26)
[2025-01-20 11:40] LABS: TROPONIN I-HIGH SENSITIVITY 320 ng/L (<51)
[2025-01-20 11:43] LABS: COVID AG,FIA SOURCE NASAL SWAB
[2025-01-20] MEDS: ATORVASTATIN CALCIUM 40 MG TABLET PO SCH (11:53)
[2025-01-20] MEDS: ACETAMINOPHEN 325 MG TABLET PO PRN (11:53)
[2025-01-20] MEDS: METOPROLOL TARTRATE 25 MG TABLET PO SCH (11:53)
[2025-01-20 12:02] LABS: INFLUENZA TYPE A NEGATIVE FOR TYPE A (NEGATIVE); INFLUENZA TYPE B NEGATIVE FOR TYPE B (NEGATIVE); SARS-COV2 (COVID) ANTIGEN,FIA Negative (Negative)
[2025-01-20 15:02] VITALS: BP 172/60; PULSE 64; RESP 18; TEMP 98.4; O2SAT 99
[2025-01-20] MEDS: HEPARIN SODIUM,PORCINE 5,000 UNITS/ML VIAL SQ SCH (15:18)
[2025-01-20 20:25] VITALS: BP 177/86; PULSE 87; RESP 18; TEMP 98.8; O2SAT 97
[2025-01-20] MEDS: DOCUSATE SODIUM 100 MG CAPSULE PO SCH (20:59)
[2025-01-20 23:50] VITALS: BP 141/80; PULSE 69; RESP 18; TEMP 98.6; O2SAT 95
[2025-01-21 05:32] VITALS: BP 159/73; PULSE 75; RESP 19; TEMP 98.6; O2SAT 94
[2025-01-21 06:36] LABS: CALCIUM, TOTAL 8.9 mg/dL (8.8-10.5); CREATININE 0.78 mg/dL (0.60-1.30); GLOMERULAR FILTR. RATE CALC > 60 mL/min (>60); GLUCOSE,RANDOM 116 mg/dL (70-110); SODIUM SERUM 138 mmol/L (136-145); UREA NITROGEN, BLOOD 9 mg/dL (7-18)
[2025-01-21 06:41] LABS: TROPONIN I-HIGH SENSITIVITY 311 ng/L (<51)
[2025-01-21] MEDS: FAMOTIDINE 20 MG TABLET PO SCH (08:02)
[2025-01-21] MEDS: ASPIRIN 81 MG CHEWABLE TABLET PO SCH (08:05)
[2025-01-21 09:27] VITALS: BP 171/73; PULSE 75; RESP 18; TEMP 97.3; O2SAT 99
[2025-01-21] MEDS: ONDANSETRON HCL 4 MG/2 ML VIAL IVP PRN (09:27)
[2025-01-21] MEDS: POTASSIUM CHLORIDE 20 MEQ ER TABLET PO ONE (09:56)
[2025-01-21] MEDS: LOSARTAN POTASSIUM 50 MG TABLET PO SCH (11:01)
[2025-01-21 12:36] VITALS: BP 175/89; PULSE 70; RESP 18; TEMP 97.4; O2SAT 97
[2025-01-21 15:44] VITALS: BP 151/60; PULSE 89; RESP 18; TEMP 97.4; O2SAT 97
== END 2025-01-21 17:00 | disposition home or self-care (01) | DRG 282 ==
LOC: EMS 08:33 → EDH 11:00 → 5S 14:50
PROVIDERS: ADMIT Internal Medicine; ATTEND Internal Medicine
DX: I16.0 Hypertensive urgency (principal); I21.A1 Myocardial infarction type 2; D64.9 Anemia, unspecified; E03.9 Hypothyroidism, unspecified; I25.10 Atherosclerotic heart disease of native coronary artery without angina pectoris; E66.9 Obesity, unspecified; F41.9 Anxiety disorder, unspecified; K21.9 Gastro-esophageal reflux disease without esophagitis; F32.A Depression, unspecified; Z20.822 Contact with and (suspected) exposure to COVID-19; G43.909 Migraine, unspecified, not intractable, without status migrainosus; F20.9 Schizophrenia, unspecified; I10 Essential (primary) hypertension; I25.2 Old myocardial infarction; Z87.440 Personal history of urinary (tract) infections; Z86.73 Personal history of transient ischemic attack (TIA), and cerebral infarction without residual deficits; Z88.0 Allergy status to penicillin; Z88.8 Allergy status to other drugs, medicaments and biological substances; Z68.38 Body mass index [BMI] 38.0-38.9, adult; Z79.899 Other long term (current) drug therapy; Z98.51 Tubal ligation status
CPT/HCPCS: 71045; 80048; 80076; 81003; 83690; 83735; 84484; 85025; 87804; 93005; 93306; 99285; J0360; J1644; J2405; 36415-L1; 36415-TC